=== PATIENT | female | born 1985 | race American Indian/Alaskan Native ===

== ENCOUNTER 2016-09-05 15:27 | Emergency (ER) | payer MEDICAID ==
[2016-09-05 15:45] VITALS: BP 122/77
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
== END 2016-09-05 16:25 | disposition home or self-care (01) ==
LOC: FB.ED 15:27
DX: S63.502A Unspecified sprain of left wrist, initial encounter (principal); S56.912A Strain of unspecified muscles, fascia and tendons at forearm level, left arm, initial encounter; E78.00 Pure hypercholesterolemia, unspecified; E11.40 Type 2 diabetes mellitus with diabetic neuropathy, unspecified; F32.9 Major depressive disorder, single episode, unspecified; Z88.5 Allergy status to narcotic agent; Z88.6 Allergy status to analgesic agent; Z79.4 Long term (current) use of insulin; Z90.49 Acquired absence of other specified parts of digestive tract; Z98.890 Other specified postprocedural states; Y04.0XXA Assault by unarmed brawl or fight, initial encounter
CPT/HCPCS: 73080-LT; 73110-LT; 99283

== ENCOUNTER 2017-03-18 15:23 | Emergency (ER) | payer MEDICAID ==
[2017-03-18] MEDS ORDERED: Sodium Chloride 0.9% 10 ML Syringe FLUSH PRN (18:54)
[2017-03-18] MEDS ORDERED: Barium Sulfate 60% w/v Susp 355 ML Bottle PO ONE (19:11)
[2017-03-18] MEDS ORDERED: Iopamidol 755 Mg/ML 100 ML Bottle IV ONE (19:11)
[2017-03-18] MEDS ORDERED: Azithromycin 500 MG Tab PO ONE (21:05)
[2017-03-18] MEDS ORDERED: cefTRIAXone 250 MG Vial IM ONE (21:09)
[2017-03-18] MEDS ORDERED: Ondansetron 4 MG Tab.DIS PO SCH (21:15)
[2017-03-18 21:26] VITALS: BP 100/60
[2017-03-19] MEDS ORDERED: valACYclovir 1,000 MG Tab PO SCH (09:00)
--- NOTE | 2017-03-19 10:50 | CR ---
INDICATION: Shortness of breath. CHEST: PA and lateral views of the chest 03/18/2017 were compared with 2015 and 11/30/2010. There is evidence of exogenous obesity. The costophrenic angles are not fully included on the study, making it difficult to entirely exclude tiny pleural effusions. However, no definite active infiltrate or effusion was identified, with markings appearing very similar, if not identical to the previous examinations. Heart, mediastinum, and bony thorax were unremarkable. IMPRESSION: No acute process. MTDD
--- NOTE | 2017-03-20 14:04 | ER ---
DATE SEEN: 03/18/2017 TIME SEEN: She was seen at 1830 hours. HISTORY OF PRESENT ILLNESS: This is a pleasant descent woman who comes in with a history of abdominal discomfort. Last menstrual period was 02/19/2017, 5, para 4-0-1-4, status post previous tubal on January 24. Noted on 03/08/2017, had intercourse, and "the condom broke". She has noted burning when she passes urine the last two days and increasing despair. She has right greater than left rib discomfort and has difficulty with inspiration effort. She has slight fever and chills. She is type 2 diabetic, takes 60 of Lantus at bedtime and sliding scale 10-12 units 3 times a day. She has mild right upper quadrant pain. Right 9th, 10th, 11th, and 12th ribs are tender. PAST MEDICAL HISTORY: Migraines, anxiety, diabetes. ALLERGIES: Codeine, tramadol, and Toradol. CURRENT MEDICATIONS: Insulin Lantus plus NovoLog, gabapentin, Klonopin for anxiety. REVIEW OF SYSTEMS: Negative except as noted in HPI. PHYSICAL EXAMINATION: VITAL SIGNS: Blood pressure 106/71, heart rate 105, respirations 18, oxygen saturation normal 100%, temperature 36.7 degrees centigrade. Heart rate did come down to 97, blood pressure stayed pretty much the same 100/60, BMI is 28.9 kg/m2. GENERAL: This woman is in tears. She has mild distress. She talks about her chest pain on the right side. She denies any cough. Denies hemoptysis. Denies irregularity of heartbeat or palpitations or diaphoresis. HEENT: PERRLA intact. Pharynx without abnormality. No ulcers noted. Mucosa normal. NECK: No cervical adenopathy, thyromegaly, or masses in the neck or bruits. LUNGS: Clear without rales, rhonchi, or wheezes. CHEST: Right chest is tender, 9th, 10th, 11th, and 12th ribs. Mid axillary line to the midclavicular line. No crepitus. No step-off. No ecchymosis. There is mild bilateral sternochondral discomfort. HEART: S1, S2. No murmur. ABDOMEN: Soft with moderate discomfort in right upper quadrant. Moderate guarding. No rebound. No heel tap rebound. No rigidity. Bowel sounds increased. No CVA percussion tenderness. EXTREMITIES: Lower extremities without abnormality. CT of the abdomen was negative for any abnormalities of her ribs for fracture. No infiltrate in the lungs. Pelvic exam demonstrated herpetic lesions, extensive in the labia majora, inner surface, mucosal surface. Elevated white ulcers noted. Herpes labialis. 1. Treat with valacyclovir 1 g t.i.d. for 10 days. 2. Hydrocodone for pain. 3. Rocephin 250 mg and IM plus azithromycin 1000 mg prophylactic for GC chlamydia. 4. Urine specimen pending. OTHER LABORATORY FINDINGS: White count 5700, PMNs 60, lymphocytes 31, hemoglobin 15.1, MCH is low at 27.6, MCV is low normal at 83.6, normal is 80-96. Very close to microcytic hypochromia. MCHC is 33 (32-35.4 is normal range). Sodium 136, potassium 3.7, chloride 99, bicarb is 18, and BUN normal at 10 and creatinine 0.8. GFR is greater than 60. Glucose 390. Troponin less than 0.017. Urinalysis with 1000 glucose, ketones 150, squamous epithelial cells, moderate urine bacteria, moderate urine opiates. Drug screen is positive for opiates. The patient denies a history of drug use. She has a prescription for hydrocodone , and noted perhaps as etiology for patient's opiates in her urine. ASSESSMENT: 1. Herpes vaginalis. 2. Abdominal pain secondary to herpes vaginalis. 3. CAT scan revealed extensive constipation, probably secondary to decreased bowel activities from the abdominal pain associated with herpes. 4. Diabetic ketoacidosis with mild hyperglycemia. The patient is able to manage her diabetes relatively well. 5. History of migraines, none presently. 6. Mild obesity. 7. Rule out Juan Pablo-Abhishek hepatitis secondary to GC. GC chlamydia is pending. The patient is treated prophylactically for potential GC and chlamydia with Rocephin and Azithromycin. 8. Borderline, almost microcytic hyperchromic in the blood, but no evidence for anemia on the basis of hemoglobin of 15.5. RDW is 14, and is normal. 9. Ketonuria. She had her urine showing blood, doubt urinary tract infection. 10.Positive opiates in the urine toxicology screen, secondary to her chronic use of hydrocodone. PLAN: Patient is dismissed after receiving Rocephin 250 IM and azithromycin 1000 mg orally plus Zofran 4 mg oral dissolving tablet, and valacyclovir a gram b.i.d. for 10 days. Follow up with doctor in 7 to 14 days. /[id number] 1 1906 NERI/EVA
== END 2017-03-18 21:25 | disposition home or self-care (01) ==
LOC: FB.ED 15:23
DX: A60.04 Herpesviral vulvovaginitis (principal); E11.10 Type 2 diabetes mellitus with ketoacidosis without coma; Z79.4 Long term (current) use of insulin; F41.9 Anxiety disorder, unspecified; K59.00 Constipation, unspecified; E66.9 Obesity, unspecified; R82.5 Elevated urine levels of drugs, medicaments and biological substances; R31.9 Hematuria, unspecified; Z88.5 Allergy status to narcotic agent; Z88.6 Allergy status to analgesic agent
CPT/HCPCS: 36415; 71046; 74177; 80053; 80305; 81001; 83880; 84484; 85025; 87491; 87591; 96372; 99285; A9270; J0696; Q9967

== ENCOUNTER 2018-07-21 18:37 | Emergency (ER) | payer MEDICAID ==
[2018-07-21] MEDS ORDERED: Acetaminophen/HYDROcodone 325-10 MG Tab PO ONE (20:38)
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
[2018-07-21 23:03] VITALS: BP 115/75
== END 2018-07-21 22:07 | disposition home or self-care (01) ==
LOC: FB.ED 18:37
DX: S93.601A Unspecified sprain of right foot, initial encounter (principal); E78.00 Pure hypercholesterolemia, unspecified; E11.40 Type 2 diabetes mellitus with diabetic neuropathy, unspecified; F17.210 Nicotine dependence, cigarettes, uncomplicated; Z88.5 Allergy status to narcotic agent; Z88.8 Allergy status to other drugs, medicaments and biological substances; Z79.4 Long term (current) use of insulin; W50.0XXA Accidental hit or strike by another person, initial encounter
CPT/HCPCS: 73610; 73630; 99283; A9270

== ENCOUNTER 2018-08-17 10:19 | Inpatient (IN) | payer MEDICAID ==
--- NOTE | 2018-08-17 11:01 | EDM.PDOC ---
ED HPI GENERAL MEDICAL PROBLEM - General Chief Complaint: General Stated Complaint: ABD PAIN AND DIABETES Time Seen by Provider: 08/17/18 11:01 Source of Information: Reports: Patient History Limitations: Reports: No Limitations - History of Present Illness INITIAL COMMENTS - FREE TEXT/NARRATIVE: patient presents with concern for feeling unwell since about last Friday. She states that she has had some bad flank pain on the left side, diarrhea last night and over the past 3 months. She is tried increasing her fiber, but this hasn't seemed to help. She has had a few night sweats, and notes a weight loss of about 15 pounds. Addition she notes it hurts to eat, she has a headache, her vision seems a little bit blurry like her sugars are off. She states she is breathing okay, but does have some pain across her chest. Slightly increased urinary frequency. She has a history of "fallopian tube infection" approximately 2 months ago treated with antibiotics up in [place]. No new sexual partner, no vaginal discharge, pain, cramping, increased urination frequency or urgency. Past history of type 2 diabetic with severe insulin resistance. She takes Lantus 75 units nightly, and NovoLog 12-80 units with each meal. She hasn't had any since last night and did not take any NovoLog today. She has been taking her Lantus consistently and has not missed any doses. She is working with her primary on getting an insulin pump improved. Normal sugars are around 250-300. She took 1000 mg Tylenol just prior to coming to the ER today. Otherwise she has not noted anything that makes her symptoms better or worse. Recently returned from attending her brother's in [place], he was killed in a freak accident falling from a roof while working on gutters. She states she mostly feels numb, although it was very strange this weekend for no one from the family to be at the powwow that he usually dances at. The family was all gathered last week for a 4-day ceremony. No alcohol, tobacco, or other substance use. bilateral flank Pain Score (Numeric/FACES): 9 - Related Data Allergies Allergy/AdvReac Type Severity Reaction Status Date / Time codeine Allergy Nausea Verified 08/17/18 10:27 ketorolac tromethamine Allergy Nausea Verified 08/17/18 10:27 [From Toradol] tramadol Allergy Tachycardia Verified 08/17/18 10:27 Home Meds: Home Meds Insulin Aspart [NovoLOG] 28 - 34 units SQ TID 10/24/12 [History] Insulin Glargine,Hum.Rec.Anlog [Lantus Solostar] 80 unit SQ BEDTIME 10/24/12 [ History] Citalopram Hydrobromide [Celexa] 40 mg PO DAILY 12/06/17 [History] ClonazePAM [KlonoPIN] 1 mg PO BID PRN 12/06/17 [History] Insulin Aspart [NovoLOG] 5 unit SQ WITHMEALSANDBED PRN #1 pen 08/17/18 [Rx] Insulin Detemir [Levemir Flextouch] 75 unit SQ BEDTIME #1 ml 08/17/18 [Rx] Past Medical History HEENT History: Reports: Other (See Below) Other HEENT History: TOOTH EXTRACTION Cardiovascular History: Reports: High Cholesterol Respiratory History: Reports: Other (See Below) Other Respiratory History: pneumonia Gastrointestinal History: Reports: Cholelithiasis Genitourinary History: Reports: UTI, Recurrent [employer] History: Reports: None, , Other (See Below) : 5 (one son 2-3 yrs ago ) Other [employer] History: 3 c sections, infection in fallopian tube Musculoskeletal History: Reports: Back Pain, Chronic Other Musculoskeletal History: DDD and bulging disks Neurological History: Reports: Migraines, Neuropathy, Diabetic Psychiatric History: Reports: Anxiety, Depression, PTSD Endocrine/Metabolic History: Reports: Diabetes, Type II - Infectious Disease History Infectious Disease History: Reports: Chicken Pox - Past Surgical History GI Surgical History: Reports: Cholecystectomy Female Surgical History: Reports: Section Social & Family History - Family History HEENT: Reports: None Cardiac: Reports: High Cholesterol, Other (See Below) Other Cardiac Family History: heart disease Respiratory: Reports: None GI: Reports: None : Reports: None OBGYN: Reports: Musculoskeletal: Reports: None Neurological: Reports: None Psychiatric: Reports: None Endocrine/Metabolic: Reports: Diabetes, type II Hematologic: Reports: None Immunologic: Reports: None Dermatologic: Reports: None Oncologic: Reports: None - Tobacco Use Smoking Status *Q: Former Smoker Used Tobacco, but Quit: Yes Month/Year Tobacco Last Used: unknown - Caffeine Use Caffeine Use: Reports: Coffee - Alcohol Use Alcohol Use History: No - Recreational Drug Use Recreational Drug Use: No - Living Situation & Occupation Living situation: Reports: Single Social History Comment: 4 children ED ROS GENERAL - Review of Systems Review Of Systems: See Below Constitutional: Reports: Malaise, Weakness, Fatigue, Night Sweats, Decreased Appetite. Denies: Fever, Chills HEENT: Denies: No Symptoms Respiratory: Reports: Pleuritic Chest Pain Cardiovascular: Reports: Chest Pain. Denies: Dyspnea on Exertion, Lightheadedness, Palpitations Endocrine: Reports: Fatigue, High Glucose (normal for her 250-300, has been that ), Polydypsia, Polyuria GI/Abdominal: Reports: Abdominal Pain, Diarrhea, Decreased Appetite, Nausea, Stool Incontinence (overnight ), Vomiting. Denies: Black Stool, Bloody Stool, Constipation, Melena : Reports: Flank Pain, Frequency. Denies: Hematuria, Urgency Musculoskeletal: Reports: Back Pain, Muscle Pain Skin: Denies: Rash Neurological: Reports: Headache. Denies: Confusion, Numbness, Syncope, Tingling , Weakness, Change in Speech Psychiatric: Reports: No Symptoms, Other (reports "feels numb" since brother ) Hematologic/Lymphatic: Denies: Easy Bleeding, Easy Bruising Immunologic: Reports: No Symptoms ED EXAM, GENERAL - Physical Exam Exam: See Below Free Text/Narrative:: general: Alert, nontoxic but very tired appearing. pupils are equal and reactive , facial muscle symmetric. Tympanic membranes are clear bilaterally with normal light reflex, throat is without erythema, pedis members moist. There is no tonsillar enlargement or exudates. Neck is supple and she has no obvious lymphadenopathy. Lungs are clear throughout with no wheezes or crackles and good air movement in all sears. Heart is regular rate and rhythm 99 murmur. Abdomen positive bowel sounds, soft, diffusely tender but nondistended. No rebound, no guarding. negative Garcia's and McBurney's point. surgical scar present. Left-sided flank pain and costovertebral angle tenderness that extends clear down her side into her hip region. peripheral pulses are +2 in both the upper and lower extremities, there is no lower extremity edema or leg swelling. She has no obvious rashes, lesions or bruises. neuro: Gait is normal, equal strength bilaterally. Psych: Mood and affect are appropriate, she makes good eye contact and answers questions appropriately. Speech is normal rate and volume and she does not show any evidence of hallucinations or paranoia. pelvic exam shows normal external female genitalia, speculum visualizes cervix with brown vaginal discharge, cervical motion tenderness, and bilateral adnexal tenderness. EKG INTERPRETATION Rhythm: NSR [place]: Normal P-Wave: Present QRS: Normal ST-T: Normal QT: Normal Comparison: NA - No Prior EKG Course - Vital Signs Text/Narrative:: initial impression - recent travel, poorly controlled diabetes, mutiple possible focal symptoms - workup for cardiac (Chest pain duration 4 days), will check D-dimer also to r/o PE. Stable vitals. She is worried about DKA, although her sugar is in the normal range, and hasn't missed any insulin, this could be also marker of infection. infectious workup - start with CXR, urine, will get blood cultures. Abdomen also possible source. No s/s of meningeal irritation. No obvious skin lesions. Eventually also will get pelvic exam tae given possible recent PID. Start IVF; she took tylenol just prior to arrival, will hold on NSAIDs at this time. Discussed that I prefer not to use opioids initially until some workup is complete and cause identified, she is agreeable. Denies need for nausea medication at this time. Last Recorded V/S: Last Vital Signs Temp 36.7 C 08/17/18 23:12 Pulse 77 08/17/18 23:12 Resp 17 08/17/18 23:12 BP 122/72 08/17/18 23:12 Pulse Ox 99 08/17/18 23:12 - Orders/Labs/Meds Orders: Active Orders 24 hr Category Date Time Status Abdomen Pelvis w Cont [CT] Stat Exams 08/17/18 14:33 Taken CULTURE BLOOD [BC] Urgent Lab 08/17/18 12:17 Received CULTURE BLOOD [BC] Urgent Lab 08/17/18 12:22 Received LIPASE, SERUM Stat Lab 08/17/18 12:17 Received Morphine Med 08/17/18 19:07 Active 2 mg IVPUSH Q4H PRN Sodium Chloride 0.9% [Normal Saline] 1,000 ml Med 08/17/18 11:30 Active IV ASDIRECTED Sodium Chloride 0.9% [Saline Flush] Med 08/17/18 12:03 Active 10 ml FLUSH ASDIRECTED PRN cefOXitin [Mefoxin] Med 08/17/18 19:15 Active 2 gm IVPUSH Q6H Blood Culture x2 Reflex Set [OM.PC] Urgent Oth 08/17/18 11:35 Ordered Saline Lock Insert [OM.PC] Routine Oth 08/17/18 12:03 Ordered EKG 12 Lead [EK] Routine Ther 08/17/18 11:28 Stop Req Medication Orders Acetaminophen (Tylenol) 650 mg PO Q4H PRN PRN Reason: Pain (Mild 1-3)/fever Cefoxitin Sodium (Mefoxin) 2 gm IVPUSH Q6H [facility] Last Admin: 08/18/18 00:25 Dose: 2 gm Admin: 08/17/18 20:18 Dose: 2 gm Clonazepam (Klonopin) 1 mg PO BID PRN PRN Reason: Anxiety Last Admin: 08/17/18 23:36 Dose: 1 mg Sodium Chloride (Normal Saline) 1,000 mls @ 125 mls/hr IV ASDIRECTED [facility] Last Admin: 08/17/18 20:06 Dose: 125 mls/hr Infusion: 08/17/18 20:02 Dose: 125 mls/hr Admin: 08/17/18 12:02 Dose: 125 mls/hr Doxycycline Hyclate 100 mg/ (Sodium Chloride) 100 mls @ 100 mls/hr IV Q12H [facility] Last Admin: 08/17/18 20:51 Dose: 100 mls/hr Morphine Sulfate (Morphine) 2 mg IVPUSH Q4H PRN PRN Reason: Abdominal Pain Last Admin: 08/18/18 01:22 Dose: 2 mg Admin: 08/17/18 20:14 Dose: 2 mg Ondansetron HCl (Zofran Odt) 4 mg PO Q4H PRN PRN Reason: nausea, able to take PO Last Admin: 08/18/18 00:02 Dose: 4 mg Admin: 08/17/18 20:14 Dose: 4 mg Pregabalin (Lyrica) 100 mg PO TID [facility] Last Admin: 08/17/18 22:23 Dose: 100 mg Sodium Chloride (Saline Flush) 10 ml FLUSH ASDIRECTED PRN PRN Reason: Keep Vein Open Last Admin: 08/17/18 14:55 Dose: 10 ml Admin: 08/17/18 12:03 Dose: 10 ml Labs: Laboratory Tests 08/17/18 08/17/18 08/17/18 Range/Units 10:40 12:17 12:17 WBC (4.5-12.0) X10-3/uL RBC (3.23-5.20) x10(6)uL Hgb (11.5-15.5) g/dL Hct (30.0-51.3) % MCV (80-96) fL MCH (27.7-33.6) pg MCHC (32.2-35.4) g/dL RDW (11.5-15.5) % Plt Count (125-369) X10(3)uL MPV (7.4-10.4) fL Neut % (Auto) (46-82) % Lymph % (Auto) (13-37) % Emmet % (Auto) (4-12) % Eos % (Auto) (1.0-5.0) % Baso % (Auto) (0-2) % Neut # (Auto) (1.6-8.3) # Lymph # (Auto) (0.6-5.0) # Emmet # (Auto) (0.0-1.3) # Eos # (Auto) (0.0-0.8) # Baso # (Auto) (0.0-0.2) # ESR (0-20) mm/hr PT (8.7-11.1) INR (0.89-1.13) D-Dimer, Quantitative (0.0-0.59) mg/LFEU POC VBG pH (7.31-7.41) POC VBG pCO2 (41-51) mmHG POC VBG HCO3 (23-28) mmol/L POC VBG Total CO2 (24-29) mmol/L POC VBG Base Excess (-2-3) mmol/L Sodium (135-145) mmol/L Potassium (3.5-5.3) mmol/L Chloride (100-110) mmol/L Carbon Dioxide (21-32) mmol/L BUN (7-18) mg/dL Creatinine (0.55-1.02) mg/dL Est Cr Clr Drug Dosing mL/min Estimated GFR (MDRD) (>60) BUN/Creatinine Ratio (9-20) Glucose (80-116) mg/dL POC Glucose 252 H (80-116) mg/dL Calcium (8.6-10.2) mg/dL Total Bilirubin (0.1-1.3) mg/dL AST (5-25) IU/L ALT (12-36) U/L Alkaline Phosphatase (56-112) IU/L Troponin I (<0.017-0.056) ng/mL C-Reactive Protein (0.5-0.9) mg/dL Total Protein (6.0-8.0) g/dL Albumin (3.5-5.2) g/dL Globulin g/dL Albumin/Globulin Ratio Urine Color Yellow (YELLOW) Urine Appearance Clear (CLEAR) Urine pH 5.0 (5.0-6.5) Ur Specific [place] 1.020 (1.010-1.025) Urine Protein Negative (NEGATIVE) mg/dL Urine Glucose (UA) >1000 H (NORMAL) mg/dL Urine Ketones 15 H (NEGATIVE) mg/dL Urine Occult Blood Negative (NEGATIVE) Urine Nitrite Negative (NEGATIVE) Urine Bilirubin Negative (NEGATIVE) Urine Urobilinogen Normal (NEGATIVE) mg/dL Ur Leukocyte Esterase Negative (NEGATIVE) Urine RBC 0-5 (0-5) Urine WBC 0-5 (0-5) Ur Squamous Epith Cells Few H (NS,R,O) Urine Bacteria Occasional H (NS) Urine HCG, Qual Negative (NEGATIVE) 08/17/18 08/17/18 08/17/18 Range/Units 12:17 12:17 12:17 WBC 6.6 (4.5-12.0) X10-3/uL RBC 4.91 (3.23-5.20) x10(6)uL Hgb 14.2 (11.5-15.5) g/dL Hct 42.7 (30.0-51.3) % MCV 86.9 (80-96) fL MCH 29.0 (27.7-33.6) pg MCHC 33.3 (32.2-35.4) g/dL RDW 12.7 (11.5-15.5) % Plt Count 169 (125-369) X10(3)uL MPV 11.9 H (7.4-10.4) fL Neut % (Auto) 68.3 (46-82) % Lymph % (Auto) 25.0 (13-37) % Emmet % (Auto) 5.6 (4-12) % Eos % (Auto) 1 (1.0-5.0) % Baso % (Auto) 0 (0-2) % Neut # (Auto) 4.5 (1.6-8.3) # Lymph # (Auto) 1.6 (0.6-5.0) # Emmet # (Auto) 0.4 (0.0-1.3) # Eos # (Auto) 0.1 (0.0-0.8) # Baso # (Auto) 0.0 (0.0-0.2) # ESR (0-20) mm/hr PT 9.6 (8.7-11.1) INR 0.99 (0.89-1.13) D-Dimer, Quantitative (0.0-0.59) mg/LFEU POC VBG pH (7.31-7.41) POC VBG pCO2 (41-51) mmHG POC VBG HCO3 (23-28) mmol/L POC VBG Total CO2 (24-29) mmol/L POC VBG Base Excess (-2-3) mmol/L Sodium 138 (135-145) mmol/L Potassium 3.5 (3.5-5.3) mmol/L Chloride 101 (100-110) mmol/L Carbon Dioxide 27 (21-32) mmol/L BUN 15 (7-18) mg/dL Creatinine 0.4 L (0.55-1.02) mg/dL Est Cr Clr Drug Dosing 211.01 mL/min Estimated GFR (MDRD) > 60 (>60) BUN/Creatinine Ratio 37.5 H (9-20) Glucose 257 H (80-116) mg/dL POC Glucose (80-116) mg/dL Calcium 8.7 (8.6-10.2) mg/dL Total Bilirubin 0.7 (0.1-1.3) mg/dL AST 15 D (5-25) IU/L ALT 28 D (12-36) U/L Alkaline Phosphatase 112 (56-112) IU/L Troponin I (<0.017-0.056) ng/mL C-Reactive Protein (0.5-0.9) mg/dL Total Protein 7.3 (6.0-8.0) g/dL Albumin 3.5 (3.5-5.2) g/dL Globulin 3.8 g/dL Albumin/Globulin Ratio 0.9 Urine Color (YELLOW) Urine Appearance (CLEAR) Urine pH (5.0-6.5) Ur Specific [place] (1.010-1.025) Urine Protein (NEGATIVE) mg/dL Urine Glucose (UA) (NORMAL) mg/dL Urine Ketones (NEGATIVE) mg/dL Urine Occult Blood (NEGATIVE) Urine Nitrite (NEGATIVE) Urine Bilirubin (NEGATIVE) Urine Urobilinogen (NEGATIVE) mg/dL Ur Leukocyte Esterase (NEGATIVE) Urine RBC (0-5) Urine WBC (0-5) Ur Squamous Epith Cells (NS,R,O) Urine Bacteria (NS) Urine HCG, Qual (NEGATIVE) 08/17/18 08/17/18 08/17/18 Range/Units 12:17 12:17 12:17 WBC (4.5-12.0) X10-3/uL RBC (3.23-5.20) x10(6)uL Hgb (11.5-15.5) g/dL Hct (30.0-51.3) % MCV (80-96) fL MCH (27.7-33.6) pg MCHC (32.2-35.4) g/dL RDW (11.5-15.5) % Plt Count (125-369) X10(3)uL MPV (7.4-10.4) fL Neut % (Auto) (46-82) % Lymph % (Auto) (13-37) % Emmet % (Auto) (4-12) % Eos % (Auto) (1.0-5.0) % Baso % (Auto) (0-2) % Neut # (Auto) (1.6-8.3) # Lymph # (Auto) (0.6-5.0) # Emmet # (Auto) (0.0-1.3) # Eos # (Auto) (0.0-0.8) # Baso # (Auto) (0.0-0.2) # ESR 19 (0-20) mm/hr PT (8.7-11.1) INR (0.89-1.13) D-Dimer, Quantitative < 0.19 (0.0-0.59) mg/LFEU POC VBG pH (7.31-7.41) POC VBG pCO2 (41-51) mmHG POC VBG HCO3 (23-28) mmol/L POC VBG Total CO2 (24-29) mmol/L POC VBG Base Excess (-2-3) mmol/L Sodium (135-145) mmol/L Potassium (3.5-5.3) mmol/L Chloride (100-110) mmol/L Carbon Dioxide (21-32) mmol/L BUN (7-18) mg/dL Creatinine (0.55-1.02) mg/dL Est Cr Clr Drug Dosing mL/min Estimated GFR (MDRD) (>60) BUN/Creatinine Ratio (9-20) Glucose (80-116) mg/dL POC Glucose (80-116) mg/dL Calcium (8.6-10.2) mg/dL Total Bilirubin (0.1-1.3) mg/dL AST (5-25) IU/L ALT (12-36) U/L Alkaline Phosphatase (56-112) IU/L Troponin I < 0.017 L (<0.017-0.056) ng/mL C-Reactive Protein (0.5-0.9) mg/dL Total Protein (6.0-8.0) g/dL Albumin (3.5-5.2) g/dL Globulin g/dL Albumin/Globulin Ratio Urine Color (YELLOW) Urine Appearance (CLEAR) Urine pH (5.0-6.5) Ur Specific [place] (1.010-1.025) Urine Protein (NEGATIVE) mg/dL Urine Glucose (UA) (NORMAL) mg/dL Urine Ketones (NEGATIVE) mg/dL Urine Occult Blood (NEGATIVE) Urine Nitrite (NEGATIVE) Urine Bilirubin (NEGATIVE) Urine Urobilinogen (NEGATIVE) mg/dL Ur Leukocyte Esterase (NEGATIVE) Urine RBC (0-5) Urine WBC (0-5) Ur Squamous Epith Cells (NS,R,O) Urine Bacteria (NS) Urine HCG, Qual (NEGATIVE) 08/17/18 08/17/18 08/17/18 Range/Units 12:17 12:38 12:51 WBC (4.5-12.0) X10-3/uL RBC (3.23-5.20) x10(6)uL Hgb (11.5-15.5) g/dL Hct (30.0-51.3) % MCV (80-96) fL MCH (27.7-33.6) pg MCHC (32.2-35.4) g/dL RDW (11.5-15.5) % Plt Count (125-369) X10(3)uL MPV (7.4-10.4) fL Neut % (Auto) (46-82) % Lymph % (Auto) (13-37) % Emmet % (Auto) (4-12) % Eos % (Auto) (1.0-5.0) % Baso % (Auto) (0-2) % Neut # (Auto) (1.6-8.3) # Lymph # (Auto) (0.6-5.0) # Emmet # (Auto) (0.0-1.3) # Eos # (Auto) (0.0-0.8) # Baso # (Auto) (0.0-0.2) # ESR (0-20) mm/hr PT (8.7-11.1) INR (0.89-1.13) D-Dimer, Quantitative (0.0-0.59) mg/LFEU POC VBG pH 7.33 (7.31-7.41) POC VBG pCO2 48.2 (41-51) mmHG POC VBG HCO3 25.6 (23-28) mmol/L POC VBG Total CO2 27 (24-29) mmol/L POC VBG Base Excess 0 (-2-3) mmol/L Sodium (135-145) mmol/L Potassium (3.5-5.3) mmol/L Chloride (100-110) mmol/L Carbon Dioxide (21-32) mmol/L BUN (7-18) mg/dL Creatinine (0.55-1.02) mg/dL Est Cr Clr Drug Dosing mL/min Estimated GFR (MDRD) (>60) BUN/Creatinine Ratio (9-20) Glucose (80-116) mg/dL POC Glucose 241 H (80-116) mg/dL Calcium (8.6-10.2) mg/dL Total Bilirubin (0.1-1.3) mg/dL AST (5-25) IU/L ALT (12-36) U/L Alkaline Phosphatase (56-112) IU/L Troponin I (<0.017-0.056) ng/mL C-Reactive Protein 0.5 (0.5-0.9) mg/dL Total Protein (6.0-8.0) g/dL Albumin (3.5-5.2) g/dL Globulin g/dL Albumin/Globulin Ratio Urine Color (YELLOW) Urine Appearance (CLEAR) Urine pH (5.0-6.5) Ur Specific [place] (1.010-1.025) Urine Protein (NEGATIVE) mg/dL Urine Glucose (UA) (NORMAL) mg/dL Urine Ketones (NEGATIVE) mg/dL Urine Occult Blood (NEGATIVE) Urine Nitrite (NEGATIVE) Urine Bilirubin (NEGATIVE) Urine Urobilinogen (NEGATIVE) mg/dL Ur Leukocyte Esterase (NEGATIVE) Urine RBC (0-5) Urine WBC (0-5) Ur Squamous Epith Cells (NS,R,O) Urine Bacteria (NS) Urine HCG, Qual (NEGATIVE) Meds: Medications Generic Name Dose Route Start Last Admin Trade Name Freq PRN Reason Stop Dose Admin Acetaminophen 650 mg 08/17/18 19:12 Tylenol PO Q4H PRN Pain (Mild 1-3)/fever Cefoxitin Sodium 2 gm 08/17/18 19:15 08/18/18 00:25 Mefoxin IVPUSH 2 gm Q6H [facility] Administration Clonazepam 1 mg 08/17/18 23:00 08/17/18 23:36 Klonopin PO 1 mg BID PRN Administration Anxiety Sodium Chloride 1,000 mls @ 125 mls/hr 08/17/18 11:30 08/17/18 20:06 Normal Saline IV 125 mls/hr ASDIRECTED [facility] Administration Doxycycline Hyclate 100 mg/ 100 mls @ 100 mls/hr 08/17/18 20:38 08/17/18 20: 51 Sodium Chloride IV 100 mls/hr Q12H [facility] Administration Morphine Sulfate 2 mg 08/17/18 19:07 08/18/18 01:22 Morphine IVPUSH 2 mg Q4H PRN Administration Abdominal Pain Ondansetron HCl 4 mg 08/17/18 19:12 08/18/18 00:02 Zofran Odt PO 4 mg Q4H PRN Administration nausea, able to take PO Pregabalin 100 mg 08/17/18 21:00 08/17/18 22:23 Lyrica PO 100 mg TID [facility] Administration Sodium Chloride 10 ml 08/17/18 12:03 08/17/18 14:55 Saline Flush FLUSH 10 ml ASDIRECTED PRN Administration Keep Vein Open Discontinued Medications Generic Name Dose Route Start Last Admin Trade Name Adonisq PRN Reason Stop Dose Admin Doxycycline Hyclate 100 mg/ 100 mls @ 100 mls/hr 08/17/18 20:00 08/17/18 20: 51 Sodium Chloride IV Not Given Q12H [facility] Insulin Glargine 0 units 08/17/18 22:50 08/17/18 23:00 Lantus Solostar SUBCUT 08/17/18 23:59 60 units BEDTIME [facility] Administration Iopamidol 100 ml 08/17/18 14:49 08/17/18 15:08 Isovue-370 (76%) IV 08/17/18 14:50 100 ml . DIRECTED ONE Administration Morphine Sulfate 2 mg 08/17/18 14:34 08/17/18 14:50 Morphine IVPUSH 08/17/18 14:35 2 mg ONETIME ONE Administration Ondansetron HCl 4 mg 08/17/18 14:34 08/17/18 14:51 Zofran IVPUSH 08/17/18 14:35 4 mg ONETIME ONE Administration - Re-Assessments/Exams Free Text/Narrative Re-Assessment/Exam: 08/17/18 recheck - still feeling pain left side, chest, back, and tae lower abdomen. Labs still pending, but EKG and CXR do no show obvious abnormalities. Labs returned - normal WBC, CMP, Trop, D-dimer negative, normal VBG. Not in DKA , no obvious infectious markers. Discussed with results with patient. She reports history bowel [place], has had multiple abdominal surgeries including 5 c/s. Ongoing diarrhea which has been worsening. Discussed getting CT Abdomen/pelvis , to which she is agreeable. Free Text/Narrative Re-Assessment/Exam: CT abdomen/pelvis - no obvious transition point suggesting small bowel obstruction, but possible paralytic illeus suggested on one side with no apparent cause, vs possible early gastroenteritis. No other abnormalities. Patient agreeable to trying PO challenge. Repeat abdominal exam unchanged. Free Text/Narrative Re-Assessment/Exam: patient unable to take in more than small sips of water and has worsening pain when doing so. Pelvic exam completed and suggestive of PID. Will start IV antibiotics. Patient admitted to [facility], IV antibiotics ordered, other admission as follows: Diabetes type II, significant insulin resistance normal lantus 75 units nightly, decrease to 60units tonight given minimal oral intake today corrective novolog 5 units ordered for glucose greater than 250, I do not anticipate she will need this maintenance rate IVF for PID treatment, Cefoxitin 2gm q6hrs [facility]Z IV and Doxycyline 100mg q12 hrs MA[facility]NAZ IV Morphine 2mg IV PRN pain, encouraged to use sparingly zofran PRN Home lyrica ordered along with PRN dose clonazepam per her home meds and confirmed on [employer] repeat labs ordered for AM clear liquid diet for now given ?findings of early ileus. further management per hospitalist in AM Departure - Departure Time of Disposition: 19:08 Disposition: Admitted As Inpatient 67 Condition: Fair Clinical Impression: Pelvic inflammatory disease (PID), Diabetes type 2, uncontrolled, Nausea vomiting and diarrhea - Discharge Information - My Orders Last 24 Hours: My Active Orders 08/17/18 11:28 EKG 12 Lead [EK] Routine 08/17/18 11:30 Sodium Chloride 0.9% [Normal Saline] 1,000 ml IV ASDIRECTED 08/17/18 11:35 Blood Culture x2 Reflex Set [OM.PC] Urgent 08/17/18 12:03 Sodium Chloride 0.9% [Saline Flush] 10 ml FLUSH ASDIRECTED PRN Saline Lock Insert [OM.PC] Routine 08/17/18 12:17 CULTURE BLOOD [BC] Urgent LIPASE, SERUM Stat 08/17/18 12:22 CULTURE BLOOD [BC] Urgent 08/17/18 14:33 Abdomen Pelvis w Cont [CT] Stat 08/17/18 19:07 Morphine 2 mg IVPUSH Q4H PRN 08/17/18 19:15 cefOXitin [Mefoxin] 2 gm IVPUSH Q6H - Assessment/Plan Last 24 Hours: My Active Orders 08/17/18 11:28 EKG 12 Lead [EK] Routine 08/17/18 11:30 Sodium Chloride 0.9% [Normal Saline] 1,000 ml IV ASDIRECTED 08/17/18 11:35 Blood Culture x2 Reflex Set [OM.PC] Urgent 08/17/18 12:03 Sodium Chloride 0.9% [Saline Flush] 10 ml FLUSH ASDIRECTED PRN Saline Lock Insert [OM.PC] Routine 08/17/18 12:17 CULTURE BLOOD [BC] Urgent LIPASE, SERUM Stat 08/17/18 12:22 CULTURE BLOOD [BC] Urgent 08/17/18 14:33 Abdomen Pelvis w Cont [CT] Stat 08/17/18 19:07 Morphine 2 mg IVPUSH Q4H PRN 08/17/18 19:15 cefOXitin [Mefoxin] 2 gm IVPUSH Q6H
[2018-08-17] MEDS: Sodium Chloride 0.9% 1,000 ML IV SCH ×2 (12:02→20:06)
[2018-08-17] MEDS: Sodium Chloride 0.9% 10 ML Syringe FLUSH PRN ×2 (12:03→14:55)
[2018-08-17] MEDS ORDERED: Ondansetron 4 MG/2 ML SDV IVPUSH ONE (14:34)
[2018-08-17] MEDS ORDERED: Morphine 2 MG/ML Syringe IVPUSH ONE (14:34)
[2018-08-17] MEDS ORDERED: Iopamidol 755 Mg/ML 100 ML Bottle IV ONE (14:49)
--- NOTE | 2018-08-17 15:17 | CR ---
INDICATION: Chest pain. CHEST: Two PA views and a lateral view of the chest were obtained, 08/17/18, and compared with 12/06/17 and 03/18/17. The heart remains normal in size and shape. Overlying EKG leads are noted. Mediastinum is unremarkable, as is the bony thorax. Evidence of exogenous obesity is noted. An active infiltrate or effusion was not identified. IMPRESSION: No acute process. MTDD
[2018-08-17] MEDS ORDERED: Acetaminophen 325 MG Tab PO PRN (19:12)
[2018-08-17] MEDS ORDERED: Doxycycline 100 MG in Sodium Chloride 0.9% 100 ML IV SCH (20:00)
[2018-08-17] MEDS: Morphine 2 MG/ML Syringe IVPUSH PRN (20:14)
[2018-08-17] MEDS: Ondansetron 4 MG Tab.DIS PO PRN (20:14)
[2018-08-17] MEDS: cefOXitin 2 GM Vial IVPUSH SCH (20:18)
[2018-08-17] MEDS: Doxycycline 100 MG in Sodium Chloride 0.9% 100 ML IV SCH (20:51)
[2018-08-17] MEDS: Pregabalin 100 MG Cap PO SCH (22:23)
[2018-08-17] MEDS ORDERED: Insulin Glargine,Human Rec. Analog 100 Units/ML 3 ML Pen SUBCUT SCH (22:50)
[2018-08-17] MEDS: ClonazePAM 1 MG Tab PO PRN (23:36)
[2018-08-18] MEDS: Ondansetron 4 MG Tab.DIS PO PRN ×5 (00:02→20:49)
[2018-08-18] MEDS: cefOXitin 2 GM Vial IVPUSH SCH ×4 (00:25→19:12)
[2018-08-18] MEDS: Morphine 2 MG/ML Syringe IVPUSH PRN ×5 (01:22→20:52)
[2018-08-18] MEDS: Sodium Chloride 0.9% 1,000 ML IV SCH ×4 (05:26→19:17)
[2018-08-18] MEDS ORDERED: ClonazePAM 0.5 MG Tab PO PRN (08:47)
[2018-08-18] MEDS ORDERED: Pregabalin 100 MG Cap PO SCH (09:00)
--- NOTE | 2018-08-18 09:48 | PCM.HP ---
H&P History of Present Illness - General Date of Service: 08/18/18 Admit Problem/Dx: Admission Diagnosis/Problem Admission Diagnosis/Problem Infection within pelvic cavity Source of Information: Patient History Limitations: Reports: No Limitations - History of Present Illness Initial Comments - Free Text/Narative: This is a 33-year-old type 2 insulin-dependent diabetic that's had 4-5 day history of left flank pain, diarrhea, fevers and not able to eat. She denied nausea or vomiting, dysuria, pyuria, hematuria, vaginal discharge. 2 months ago she was diagnosed with an STD. She says she's been with the same partner for a year. ER doc notes that she had a lot of follow smelling purulent cervical discharge and admitted her with cephalosporin and doxycycline for PID. She denies diaphoresis, cough, shortness of breath. She low chest pain which she came in to the ER and evaluated and it came up negative bilateral flank Pain Score (Numeric/FACES): 9 - Related Data Allergies/Adverse Reactions: Allergies Allergy/AdvReac Type Severity Reaction Status Date / Time codeine Allergy Nausea Verified 08/17/18 10:27 ketorolac tromethamine Allergy Nausea Verified 08/17/18 10:27 [From Toradol] tramadol Allergy Tachycardia Verified 08/17/18 10:27 Home Medications: Home Meds ClonazePAM [KlonoPIN] 1 mg PO BID PRN 12/06/17 [History] Admelog 12 - 18 unit SUBCUT TIDMEALS 08/18/18 [History] DULoxetine [Cymbalta] 60 mg PO BEDTIME 08/18/18 [History] Hydrocodone/Acetaminophen [Hydrocodon-Acetaminophn 10-325] 1 tab PO TID PRN 10/29 [History] Insulin Glargine,Hum.Rec.Anlog [Basaglar Kwikpen U-100] 75 units SUBCUT BEDTIME 08/18/18 [History] Lisinopril 5 mg PO DAILY 08/18/18 [History] Pregabalin [Lyrica] 100 mg PO TID 08/18/18 [History] Past Medical History HEENT History: Reports: Other (See Below) Other HEENT History: TOOTH EXTRACTION Cardiovascular History: Reports: High Cholesterol Respiratory History: Reports: Other (See Below) Other Respiratory History: pneumonia Gastrointestinal History: Reports: Cholelithiasis Genitourinary History: Reports: UTI, Recurrent FLOTATION TENDER History: Reports: None, , Other (See Below) Other OB/BYN History: 3 c sections, infection in fallopian tube Musculoskeletal History: Reports: Back Pain, Chronic Other Musculoskeletal History: DDD and bulging disks Neurological History: Reports: Migraines, Neuropathy, Diabetic Psychiatric History: Reports: Anxiety, Depression, PTSD Endocrine/Metabolic History: Reports: Diabetes, Type II - Infectious Disease History Infectious Disease History: Reports: Chicken Pox - Past Surgical History GI Surgical History: Reports: Cholecystectomy Female Surgical History: Reports: Section Social & Family History - Family History Family Medical History: Noncontributory HEENT: Reports: None Cardiac: Reports: High Cholesterol, Other (See Below) Other Cardiac Family History: heart disease Respiratory: Reports: None GI: Reports: None : Reports: None OBGYN: Reports: Musculoskeletal: Reports: None Neurological: Reports: None Psychiatric: Reports: None Endocrine/Metabolic: Reports: Diabetes, type II Hematologic: Reports: None Immunologic: Reports: None Dermatologic: Reports: None Oncologic: Reports: None - Tobacco Use Smoking Status *Q: Former Smoker Years of Tobacco use: 5 Packs/Tins Daily: 0.2 Used Tobacco, but Quit: Yes Month/Year Tobacco Last Used: unknown Second Hand Smoke Exposure: No - Caffeine Use Caffeine Use: Reports: Coffee - Recreational Drug Use Recreational Drug Use: No - Living Situation & Occupation Living situation: Reports: Single H&P Review of Systems - Review of Systems: Review Of Systems: See Below General: Reports: Fever HEENT: Reports: No Symptoms Pulmonary: Reports: No Symptoms Cardiovascular: Reports: No Symptoms Gastrointestinal: Reports: Diarrhea, Decreased Appetite. Denies: Bloody Stool, Hematochezia, Melena, Nausea, Vomiting Genitourinary: Reports: Discharge Musculoskeletal: Reports: Back Pain Skin: Reports: No Symptoms Psychiatric: Reports: No Symptoms Neurological: Reports: No Symptoms Hematologic/Lymphatic: Reports: No Symptoms Immunologic: Reports: No Symptoms Exam - Exam Exam: See Below - Vital Signs Vital Signs: Last Vital Signs Temp 97.8 F 08/18/18 05:28 Pulse 73 08/18/18 05:28 Resp 17 08/18/18 05:28 BP 106/77 08/18/18 05:28 Pulse Ox 99 08/18/18 05:28 Weight: 190 lb 9 oz - Exam General: Alert, Oriented, Cooperative HEENT: Hearing Intact, Mucosa Moist & [place], Posterior Pharynx Clear, TMs Clear Neck: Supple, Trachea Midline Lungs: Clear to Auscultation, Normal Respiratory Effort. No: Crackles, Rales, Rhonchi, Rub Cardiovascular: Regular Rate, Regular Rhythm. No: Systolic Murmur, Diastolic Murmur GI/Abdominal Exam: Normal Bowel Sounds, Non-Tender, No Organomegaly, No Distention, No Abnormal Bruit, No Mass (Female) Exam: Other (Vaginal exam deferred. Was done by the ER physician and I talk to her about it and reviewed her note. She had cervical motion tenderness and discharge) Back Exam: Normal Inspection. No: CVA Tenderness (R), CVA Tenderness (L) Extremities: Normal Inspection, Non-Tender, No Pedal Edema Skin: Warm Neurological: Cranial Nerves Intact, Reflexes Equal Bilateral, Normal Speech, Normal Tone Neuro Extensive - Mental Status: Alert, Oriented x3, Normal Mood/Affect, Normal Cognition Neuro Extensive - Motor, Sensory, Reflexes: Normal Gait Psychiatric: Alert, Normal Affect, Normal Mood - Patient Data Lab Results Last 24 hrs: Laboratory Results - last 24 hr 08/17/18 08/17/18 08/17/18 Range/Units 10:40 12:17 12:17 WBC (4.5-12.0) X10-3/uL RBC (3.23-5.20) x10(6)uL Hgb (11.5-15.5) g/dL Hct (30.0-51.3) % MCV (80-96) fL MCH (27.7-33.6) pg MCHC (32.2-35.4) g/dL RDW (11.5-15.5) % Plt Count (125-369) X10(3)uL MPV (7.4-10.4) fL Neut % (Auto) (46-82) % Lymph % (Auto) (13-37) % Maries % (Auto) (4-12) % Eos % (Auto) (1.0-5.0) % Baso % (Auto) (0-2) % Neut # (Auto) (1.6-8.3) # Lymph # (Auto) (0.6-5.0) # Maries # (Auto) (0.0-1.3) # Eos # (Auto) (0.0-0.8) # Baso # (Auto) (0.0-0.2) # ESR (0-20) mm/hr PT (8.7-11.1) INR (0.89-1.13) D-Dimer, Quantitative (0.0-0.59) mg/LFEU POC VBG pH (7.31-7.41) POC VBG pCO2 (41-51) mmHG POC VBG HCO3 (23-28) mmol/L POC VBG Total CO2 (24-29) mmol/L POC VBG Base Excess (-2-3) mmol/L Sodium (135-145) mmol/L Potassium (3.5-5.3) mmol/L Chloride (100-110) mmol/L Carbon Dioxide (21-32) mmol/L BUN (7-18) mg/dL Creatinine (0.55-1.02) mg/dL Est Cr Clr Drug Dosing mL/min Estimated GFR (MDRD) (>60) BUN/Creatinine Ratio (9-20) Glucose (80-116) mg/dL POC Glucose 252 H (80-116) mg/dL Calcium (8.6-10.2) mg/dL Total Bilirubin (0.1-1.3) mg/dL AST (5-25) IU/L ALT (12-36) U/L Alkaline Phosphatase (56-112) IU/L Troponin I (<0.017-0.056) ng/mL C-Reactive Protein (0.5-0.9) mg/dL Total Protein (6.0-8.0) g/dL Albumin (3.5-5.2) g/dL Globulin g/dL Albumin/Globulin Ratio Lipase (14-72) U/L Urine Color Yellow (YELLOW) Urine Appearance Clear (CLEAR) Urine pH 5.0 (5.0-6.5) Ur Specific [place] 1.020 (1.010-1.025) Urine Protein Negative (NEGATIVE) mg/dL Urine Glucose (UA) >1000 H (NORMAL) mg/dL Urine Ketones 15 H (NEGATIVE) mg/dL Urine Occult Blood Negative (NEGATIVE) Urine Nitrite Negative (NEGATIVE) Urine Bilirubin Negative (NEGATIVE) Urine Urobilinogen Normal (NEGATIVE) mg/dL Ur Leukocyte Esterase Negative (NEGATIVE) Urine RBC 0-5 (0-5) Urine WBC 0-5 (0-5) Ur Squamous Epith Cells Few H (NS,R,O) Urine Bacteria Occasional H (NS) Urine HCG, Qual Negative (NEGATIVE) 08/17/18 08/17/18 08/17/18 Range/Units 12:17 12:17 12:17 WBC 6.6 (4.5-12.0) X10-3/uL RBC 4.91 (3.23-5.20) x10(6)uL Hgb 14.2 (11.5-15.5) g/dL Hct 42.7 (30.0-51.3) % MCV 86.9 (80-96) fL MCH 29.0 (27.7-33.6) pg MCHC 33.3 (32.2-35.4) g/dL RDW 12.7 (11.5-15.5) % Plt Count 169 (125-369) X10(3)uL MPV 11.9 H (7.4-10.4) fL Neut % (Auto) 68.3 (46-82) % Lymph % (Auto) 25.0 (13-37) % Maries % (Auto) 5.6 (4-12) % Eos % (Auto) 1 (1.0-5.0) % Baso % (Auto) 0 (0-2) % Neut # (Auto) 4.5 (1.6-8.3) # Lymph # (Auto) 1.6 (0.6-5.0) # Maries # (Auto) 0.4 (0.0-1.3) # Eos # (Auto) 0.1 (0.0-0.8) # Baso # (Auto) 0.0 (0.0-0.2) # ESR (0-20) mm/hr PT 9.6 (8.7-11.1) INR 0.99 (0.89-1.13) D-Dimer, Quantitative (0.0-0.59) mg/LFEU POC VBG pH (7.31-7.41) POC VBG pCO2 (41-51) mmHG POC VBG HCO3 (23-28) mmol/L POC VBG Total CO2 (24-29) mmol/L POC VBG Base Excess (-2-3) mmol/L Sodium 138 (135-145) mmol/L Potassium 3.5 (3.5-5.3) mmol/L Chloride 101 (100-110) mmol/L Carbon Dioxide 27 (21-32) mmol/L BUN 15 (7-18) mg/dL Creatinine 0.4 L (0.55-1.02) mg/dL Est Cr Clr Drug Dosing 211.01 mL/min Estimated GFR (MDRD) > 60 (>60) BUN/Creatinine Ratio 37.5 H (9-20) Glucose 257 H (80-116) mg/dL POC Glucose (80-116) mg/dL Calcium 8.7 (8.6-10.2) mg/dL Total Bilirubin 0.7 (0.1-1.3) mg/dL AST 15 D (5-25) IU/L ALT 28 D (12-36) U/L Alkaline Phosphatase 112 (56-112) IU/L Troponin I (<0.017-0.056) ng/mL C-Reactive Protein (0.5-0.9) mg/dL Total Protein 7.3 (6.0-8.0) g/dL Albumin 3.5 (3.5-5.2) g/dL Globulin 3.8 g/dL Albumin/Globulin Ratio 0.9 Lipase (14-72) U/L Urine Color (YELLOW) Urine Appearance (CLEAR) Urine pH (5.0-6.5) Ur Specific [place] (1.010-1.025) Urine Protein (NEGATIVE) mg/dL Urine Glucose (UA) (NORMAL) mg/dL Urine Ketones (NEGATIVE) mg/dL Urine Occult Blood (NEGATIVE) Urine Nitrite (NEGATIVE) Urine Bilirubin (NEGATIVE) Urine Urobilinogen (NEGATIVE) mg/dL Ur Leukocyte Esterase (NEGATIVE) Urine RBC (0-5) Urine WBC (0-5) Ur Squamous Epith Cells (NS,R,O) Urine Bacteria (NS) Urine HCG, Qual (NEGATIVE) 08/17/18 08/17/18 08/17/18 Range/Units 12:17 12:17 12:17 WBC (4.5-12.0) X10-3/uL RBC (3.23-5.20) x10(6)uL Hgb (11.5-15.5) g/dL Hct (30.0-51.3) % MCV (80-96) fL MCH (27.7-33.6) pg MCHC (32.2-35.4) g/dL RDW (11.5-15.5) % Plt Count (125-369) X10(3)uL MPV (7.4-10.4) fL Neut % (Auto) (46-82) % Lymph % (Auto) (13-37) % Maries % (Auto) (4-12) % Eos % (Auto) (1.0-5.0) % Baso % (Auto) (0-2) % Neut # (Auto) (1.6-8.3) # Lymph # (Auto) (0.6-5.0) # Maries # (Auto) (0.0-1.3) # Eos # (Auto) (0.0-0.8) # Baso # (Auto) (0.0-0.2) # ESR (0-20) mm/hr PT (8.7-11.1) INR (0.89-1.13) D-Dimer, Quantitative < 0.19 (0.0-0.59) mg/LFEU POC VBG pH (7.31-7.41) POC VBG pCO2 (41-51) mmHG POC VBG HCO3 (23-28) mmol/L POC VBG Total CO2 (24-29) mmol/L POC VBG Base Excess (-2-3) mmol/L Sodium (135-145) mmol/L Potassium (3.5-5.3) mmol/L Chloride (100-110) mmol/L Carbon Dioxide (21-32) mmol/L BUN (7-18) mg/dL Creatinine (0.55-1.02) mg/dL Est Cr Clr Drug Dosing mL/min Estimated GFR (MDRD) (>60) BUN/Creatinine Ratio (9-20) Glucose (80-116) mg/dL POC Glucose (80-116) mg/dL Calcium (8.6-10.2) mg/dL Total Bilirubin (0.1-1.3) mg/dL AST (5-25) IU/L ALT (12-36) U/L Alkaline Phosphatase (56-112) IU/L Troponin I < 0.017 L (<0.017-0.056) ng/mL C-Reactive Protein (0.5-0.9) mg/dL Total Protein (6.0-8.0) g/dL Albumin (3.5-5.2) g/dL Globulin g/dL Albumin/Globulin Ratio Lipase 17 (14-72) U/L Urine Color (YELLOW) Urine Appearance (CLEAR) Urine pH (5.0-6.5) Ur Specific [place] (1.010-1.025) Urine Protein (NEGATIVE) mg/dL Urine Glucose (UA) (NORMAL) mg/dL Urine Ketones (NEGATIVE) mg/dL Urine Occult Blood (NEGATIVE) Urine Nitrite (NEGATIVE) Urine Bilirubin (NEGATIVE) Urine Urobilinogen (NEGATIVE) mg/dL Ur Leukocyte Esterase (NEGATIVE) Urine RBC (0-5) Urine WBC (0-5) Ur Squamous Epith Cells (NS,R,O) Urine Bacteria (NS) Urine HCG, Qual (NEGATIVE) 08/17/18 08/17/18 08/17/18 Range/Units 12:17 12:17 12:38 WBC (4.5-12.0) X10-3/uL RBC (3.23-5.20) x10(6)uL Hgb (11.5-15.5) g/dL Hct (30.0-51.3) % MCV (80-96) fL MCH (27.7-33.6) pg MCHC (32.2-35.4) g/dL RDW (11.5-15.5) % Plt Count (125-369) X10(3)uL MPV (7.4-10.4) fL Neut % (Auto) (46-82) % Lymph % (Auto) (13-37) % Maries % (Auto) (4-12) % Eos % (Auto) (1.0-5.0) % Baso % (Auto) (0-2) % Neut # (Auto) (1.6-8.3) # Lymph # (Auto) (0.6-5.0) # Maries # (Auto) (0.0-1.3) # Eos # (Auto) (0.0-0.8) # Baso # (Auto) (0.0-0.2) # ESR 19 (0-20) mm/hr PT (8.7-11.1) INR (0.89-1.13) D-Dimer, Quantitative (0.0-0.59) mg/LFEU POC VBG pH 7.33 (7.31-7.41) POC VBG pCO2 48.2 (41-51) mmHG POC VBG HCO3 25.6 (23-28) mmol/L POC VBG Total CO2 27 (24-29) mmol/L POC VBG Base Excess 0 (-2-3) mmol/L Sodium (135-145) mmol/L Potassium (3.5-5.3) mmol/L Chloride (100-110) mmol/L Carbon Dioxide (21-32) mmol/L BUN (7-18) mg/dL Creatinine (0.55-1.02) mg/dL Est Cr Clr Drug Dosing mL/min Estimated GFR (MDRD) (>60) BUN/Creatinine Ratio (9-20) Glucose (80-116) mg/dL POC Glucose (80-116) mg/dL Calcium (8.6-10.2) mg/dL Total Bilirubin (0.1-1.3) mg/dL AST (5-25) IU/L ALT (12-36) U/L Alkaline Phosphatase (56-112) IU/L Troponin I (<0.017-0.056) ng/mL C-Reactive Protein 0.5 (0.5-0.9) mg/dL Total Protein (6.0-8.0) g/dL Albumin (3.5-5.2) g/dL Globulin g/dL Albumin/Globulin Ratio Lipase (14-72) U/L Urine Color (YELLOW) Urine Appearance (CLEAR) Urine pH (5.0-6.5) Ur Specific [place] (1.010-1.025) Urine Protein (NEGATIVE) mg/dL Urine Glucose (UA) (NORMAL) mg/dL Urine Ketones (NEGATIVE) mg/dL Urine Occult Blood (NEGATIVE) Urine Nitrite (NEGATIVE) Urine Bilirubin (NEGATIVE) Urine Urobilinogen (NEGATIVE) mg/dL Ur Leukocyte Esterase (NEGATIVE) Urine RBC (0-5) Urine WBC (0-5) Ur Squamous Epith Cells (NS,R,O) Urine Bacteria (NS) Urine HCG, Qual (NEGATIVE) 08/17/18 08/17/18 08/18/18 Range/Units 12:51 22:37 01:21 WBC (4.5-12.0) X10-3/uL RBC (3.23-5.20) x10(6)uL Hgb (11.5-15.5) g/dL Hct (30.0-51.3) % MCV (80-96) fL MCH (27.7-33.6) pg MCHC (32.2-35.4) g/dL RDW (11.5-15.5) % Plt Count (125-369) X10(3)uL MPV (7.4-10.4) fL Neut % (Auto) (46-82) % Lymph % (Auto) (13-37) % Maries % (Auto) (4-12) % Eos % (Auto) (1.0-5.0) % Baso % (Auto) (0-2) % Neut # (Auto) (1.6-8.3) # Lymph # (Auto) (0.6-5.0) # Maries # (Auto) (0.0-1.3) # Eos # (Auto) (0.0-0.8) # Baso # (Auto) (0.0-0.2) # ESR (0-20) mm/hr PT (8.7-11.1) INR (0.89-1.13) D-Dimer, Quantitative (0.0-0.59) mg/LFEU POC VBG pH (7.31-7.41) POC VBG pCO2 (41-51) mmHG POC VBG HCO3 (23-28) mmol/L POC VBG Total CO2 (24-29) mmol/L POC VBG Base Excess (-2-3) mmol/L Sodium (135-145) mmol/L Potassium (3.5-5.3) mmol/L Chloride (100-110) mmol/L Carbon Dioxide (21-32) mmol/L BUN (7-18) mg/dL Creatinine (0.55-1.02) mg/dL Est Cr Clr Drug Dosing mL/min Estimated GFR (MDRD) (>60) BUN/Creatinine Ratio (9-20) Glucose (80-116) mg/dL POC Glucose 241 H 186 H 173 H (80-116) mg/dL Calcium (8.6-10.2) mg/dL Total Bilirubin (0.1-1.3) mg/dL AST (5-25) IU/L ALT (12-36) U/L Alkaline Phosphatase (56-112) IU/L Troponin I (<0.017-0.056) ng/mL C-Reactive Protein (0.5-0.9) mg/dL Total Protein (6.0-8.0) g/dL Albumin (3.5-5.2) g/dL Globulin g/dL Albumin/Globulin Ratio Lipase (14-72) U/L Urine Color (YELLOW) Urine Appearance (CLEAR) Urine pH (5.0-6.5) Ur Specific [place] (1.010-1.025) Urine Protein (NEGATIVE) mg/dL Urine Glucose (UA) (NORMAL) mg/dL Urine Ketones (NEGATIVE) mg/dL Urine Occult Blood (NEGATIVE) Urine Nitrite (NEGATIVE) Urine Bilirubin (NEGATIVE) Urine Urobilinogen (NEGATIVE) mg/dL Ur Leukocyte Esterase (NEGATIVE) Urine RBC (0-5) Urine WBC (0-5) Ur Squamous Epith Cells (NS,R,O) Urine Bacteria (NS) Urine HCG, Qual (NEGATIVE) 08/18/18 08/18/18 Range/Units 06:15 06:15 WBC 8.1 (4.5-12.0) X10-3/uL RBC 4.31 (3.23-5.20) x10(6)uL Hgb 12.8 (11.5-15.5) g/dL Hct 37.6 (30.0-51.3) % MCV 87.3 (80-96) fL MCH 29.7 (27.7-33.6) pg MCHC 34.0 (32.2-35.4) g/dL RDW 12.2 (11.5-15.5) % Plt Count 167 (125-369) X10(3)uL MPV 11.1 H (7.4-10.4) fL Neut % (Auto) 58.9 (46-82) % Lymph % (Auto) 32.4 (13-37) % Maries % (Auto) 6.9 (4-12) % Eos % (Auto) 1 (1.0-5.0) % Baso % (Auto) 0 (0-2) % Neut # (Auto) 4.8 (1.6-8.3) # Lymph # (Auto) 2.6 (0.6-5.0) # Maries # (Auto) 0.6 (0.0-1.3) # Eos # (Auto) 0.1 (0.0-0.8) # Baso # (Auto) 0.0 (0.0-0.2) # ESR (0-20) mm/hr PT (8.7-11.1) INR (0.89-1.13) D-Dimer, Quantitative (0.0-0.59) mg/LFEU POC VBG pH (7.31-7.41) POC VBG pCO2 (41-51) mmHG POC VBG HCO3 (23-28) mmol/L POC VBG Total CO2 (24-29) mmol/L POC VBG Base Excess (-2-3) mmol/L Sodium 143 (135-145) mmol/L Potassium 2.9 L (3.5-5.3) mmol/L Chloride 107 D (100-110) mmol/L Carbon Dioxide 27 (21-32) mmol/L BUN 12 (7-18) mg/dL Creatinine 0.7 (0.55-1.02) mg/dL Est Cr Clr Drug Dosing 120.58 mL/min Estimated GFR (MDRD) > 60 (>60) BUN/Creatinine Ratio 17.1 (9-20) Glucose 154 H D (80-116) mg/dL POC Glucose (80-116) mg/dL Calcium 8.0 L (8.6-10.2) mg/dL Total Bilirubin (0.1-1.3) mg/dL AST (5-25) IU/L ALT (12-36) U/L Alkaline Phosphatase (56-112) IU/L Troponin I (<0.017-0.056) ng/mL C-Reactive Protein (0.5-0.9) mg/dL Total Protein (6.0-8.0) g/dL Albumin (3.5-5.2) g/dL Globulin g/dL Albumin/Globulin Ratio Lipase (14-72) U/L Urine Color (YELLOW) Urine Appearance (CLEAR) Urine pH (5.0-6.5) Ur Specific [place] (1.010-1.025) Urine Protein (NEGATIVE) mg/dL Urine Glucose (UA) (NORMAL) mg/dL Urine Ketones (NEGATIVE) mg/dL Urine Occult Blood (NEGATIVE) Urine Nitrite (NEGATIVE) Urine Bilirubin (NEGATIVE) Urine Urobilinogen (NEGATIVE) mg/dL Ur Leukocyte Esterase (NEGATIVE) Urine RBC (0-5) Urine WBC (0-5) Ur Squamous Epith Cells (NS,R,O) Urine Bacteria (NS) Urine HCG, Qual (NEGATIVE) Result Diagrams: 08/18/18 06:15 08/18/18 06:15 - Problem List (1) Dehydration SNOMED Code(s): 20471985 ICD Code: E86.0 - DEHYDRATION Status: Acute Current Visit: Yes (2) Gastroenteritis SNOMED Code(s): 51679151 ICD Code: K52.9 - NONINFECTIVE GASTROENTERITIS AND COLITIS, UNSPECIFIED Status: Acute Current Visit: Yes (3) Diabetes type 2, uncontrolled SNOMED Code(s): 454014047, 648595009 ICD Code: E11.65 - TYPE 2 DIABETES MELLITUS WITH HYPERGLYCEMIA Status: Acute Current Visit: Yes (4) Pelvic inflammatory disease (PID) SNOMED Code(s): 393205809 ICD Code: N73.9 - FEMALE PELVIC INFLAMMATORY DISEASE, UNSPECIFIED Status: Acute Current Visit: Yes Problem List Initiated/Reviewed/Updated: Yes Orders Last 24hrs: Active Orders 24 hr Category Date Time Status Admission Status [Patient Status] [ADT] Routine ADT 08/18/18 08:51 Active Accu Check [Blood Glucose Check, Bedside] [RC] Care 08/18/18 08:49 Active QIDACANDBED Blood Glucose Check, Bedside [RC] WITHMEALSANDBED Care 08/17/18 19:12 Active Oxygen Therapy [RC] PRN Care 08/17/18 19:12 Active Up ad Remedios [RC] ASDIRECTED Care 08/17/18 19:12 Active Up ad Remedios [RC] ASDIRECTED Care 08/18/18 08:53 Active VTE/DVT Education [RC] Per Unit Routine Care 08/17/18 19:12 Active Vital Signs [RC] Q4H Care 08/17/18 19:12 Active Abdomen Pelvis w Cont [CT] Stat Exams 08/17/18 14:33 Taken BASIC METABOLIC PANEL,BMP [CHEM] AM Lab 08/19/18 08:00 Ordered CHLAMYDIA/GC AMPLIFICATION Stat Lab 08/18/18 07:50 Ordered CULTURE BLOOD [BC] Urgent Lab 08/17/18 12:17 Received CULTURE BLOOD [BC] Urgent Lab 08/17/18 12:22 Received Acetaminophen [Tylenol] Med 08/17/18 19:12 Active 650 mg PO Q4H PRN Acetaminophen/HYDROcodone [[place] 325-10 MG] Med 08/18/18 08:47 Active 1 tab PO TID PRN ClonazePAM [KlonoPIN] Med 08/17/18 23:00 Active 1 mg PO BID PRN DULoxetine [Cymbalta] Med 08/18/18 21:00 Active 60 mg PO BEDTIME Doxycycline [Vibramycin] 100 mg Med 08/17/18 20:38 Active Sodium Chloride 0.9% [Normal Saline] 100 ml IV Q12H Enoxaparin [Lovenox] Med 08/18/18 09:00 Active 40 mg SUBCUT Q24H Insulin Glarg,Human.Rec.Analog [LantUS Solostar] Med 08/18/18 21:00 Active 35 units SUBCUT BEDTIME Insulin Lispro [HumaLOG] Med 08/18/18 09:00 Active See Protocol SUBCUT QIDACANDBED Lisinopril [Prinivil] Med 08/18/18 09:00 Active 5 mg PO DAILY Morphine Med 08/17/18 19:07 Active 2 mg IVPUSH Q4H PRN Ondansetron [Zofran ODT] Med 08/17/18 19:12 Active 4 mg PO Q4H PRN Potassium Chloride [Klor-Con M20] Med 08/18/18 09:00 Active 20 meq PO BID Pregabalin [Lyrica] Med 08/17/18 21:00 Active 100 mg PO TID Sodium Chloride 0.9% [Normal Saline] 1,000 ml Med 08/17/18 11:30 Active IV ASDIRECTED Sodium Chloride 0.9% [Saline Flush] Med 08/17/18 12:03 Active 10 ml FLUSH ASDIRECTED PRN cefOXitin [Mefoxin] Med 08/17/18 19:15 Active 2 gm IVPUSH Q6H Blood Culture x2 Reflex Set [OM.PC] Urgent Oth 08/17/18 11:35 Ordered Saline Lock Insert [OM.PC] Routine Oth 08/17/18 12:03 Ordered Resuscitation Status Routine Resus Stat 08/17/18 19:12 Ordered EKG 12 Lead [EK] Routine Ther 08/17/18 11:28 Stop Req Medication Orders Acetaminophen (Tylenol) 650 mg PO Q4H PRN PRN Reason: Pain (Mild 1-3)/fever Hydrocodone Bitart/Acetaminophen ([place] 325-10 Mg) 1 tab PO TID PRN PRN Reason: Pain Cefoxitin Sodium (Mefoxin) 2 gm IVPUSH Q6H [facility] Last Admin: 08/18/18 06:17 Dose: 2 gm Admin: 08/18/18 00:25 Dose: 2 gm Admin: 08/17/18 20:18 Dose: 2 gm Clonazepam (Klonopin) 1 mg PO BID PRN PRN Reason: Anxiety Last Admin: 08/17/18 23:36 Dose: 1 mg Duloxetine HCl (Cymbalta) 60 mg PO BEDTIME [facility] Enoxaparin Sodium (Lovenox) 40 mg SUBCUT Q24H [facility] Sodium Chloride (Normal Saline) 1,000 mls @ 250 mls/hr IV ASDIRECTED [facility] Last Admin: 08/18/18 05:26 Dose: 125 mls/hr Infusion: 08/18/18 04:06 Dose: 125 mls/hr Admin: 08/17/18 20:06 Dose: 125 mls/hr Infusion: 08/17/18 20:02 Dose: 125 mls/hr Admin: 08/17/18 12:02 Dose: 125 mls/hr Doxycycline Hyclate 100 mg/ (Sodium Chloride) 100 mls @ 100 mls/hr IV Q12H [facility] Last Admin: 08/17/18 20:51 Dose: 100 mls/hr Insulin Glargine (Lantus Solostar) 35 units SUBCUT BEDTIME [facility] Insulin Human Lispro (Humalog) 0 unit SUBCUT QIDACANDBED [facility]; Protocol Lisinopril (Prinivil) 5 mg PO DAILY [facility] Morphine Sulfate (Morphine) 2 mg IVPUSH Q4H PRN PRN Reason: Abdominal Pain Last Admin: 08/18/18 05:46 Dose: 2 mg Admin: 08/18/18 01:22 Dose: 2 mg Admin: 08/17/18 20:14 Dose: 2 mg Ondansetron HCl (Zofran Odt) 4 mg PO Q4H PRN PRN Reason: nausea, able to take PO Last Admin: 08/18/18 05:50 Dose: 4 mg Admin: 08/18/18 00:02 Dose: 4 mg Admin: 08/17/18 20:14 Dose: 4 mg Potassium Chloride (Klor-Con M20) 20 meq PO BID MAHNAZ Pregabalin (Lyrica) 100 mg PO TID MAHNAZ Last Admin: 08/17/18 22:23 Dose: 100 mg Sodium Chloride (Saline Flush) 10 ml FLUSH ASDIRECTED PRN PRN Reason: Keep Vein Open Last Admin: 08/17/18 14:55 Dose: 10 ml Admin: 08/17/18 12:03 Dose: 10 ml Assessment/Plan Comment:: 1. Admit for observation 2. I will give half of her Lantus and put on a sliding scale 4 times a day with long-acting insulins with 4 times a day Accu-Cheks. 3. VTE prophylaxis with Lovenox. 4. Clear liquids and advance diet as tolerated 5. IV fluids at 250 mL an hour until the patient becomes hydrated 6. Doxycycline by mouth and cefoxitin IV for PID 7. GC and chlamydia were not done so we'll get those for urine today. 8. Up ad remedios. 9. Potassium supplement due to low potassium and recheck BMP in a.m.
[2018-08-18] MEDS: Doxycycline 100 MG in Sodium Chloride 0.9% 100 ML IV SCH ×2 (09:55→20:16)
[2018-08-18] MEDS: Lisinopril 5 MG Tab PO SCH (10:01)
[2018-08-18] MEDS: Potassium Chloride 20 MEQ Tab.ER PO SCH ×2 (10:03→20:19)
[2018-08-18] MEDS: Enoxaparin 40 MG/0.4 ML Syringe SUBCUT SCH (10:03)
[2018-08-18] MEDS: Insulin Lispro 100 Unit/ML 3 ML KwikPen SUBCUT SCH ×4 (10:04→20:41)
[2018-08-18] MEDS: Pregabalin 100 MG Cap PO SCH ×3 (10:07→20:20)
--- NOTE | 2018-08-18 10:42 | CT ---
INDICATION: Bilateral abdominal pain, history of small bowel obstruction, and history of type [address] ABDOMEN AND PELVIS WITH IV CONTRAST: Spiral 3.75 mm axial sections were obtained through the abdomen and pelvis with 100 mL Isovue 370 at 2.5 mL/second , with sagittal and coronal reconstructions, 08/17/18, and compared with . Total exam DLP = 885.74 mGy-cm. The lower lung sears and pleural spaces visualized appeared normal. The heart appeared normal in size. No pericardial effusion was seen. An area of low density is noted in the right lobe of the liver, unchanged from the previous examination, likely of benign origin. This is best seen on axial images #28 through #32, compared with #82 through #92 on the previous study. Clips compatible with cholecystectomy are again noted. The common bile duct was not dilated, especially allowing for post cholecystectomy change. The adrenal glands and kidneys appear to be normal without evidence of obstructive uropathy, gross calculi, pyelonephritis, or mass lesions. The spleen and the pancreas appear to be normal. No retroperitoneal masses were identified. Septated uterus didelphys, as previously, better visualized with IV contrast. Mildly distended loop of what appears to be distal jejunum is noted in the right flank with air fluid level. This could be on the basis of a process such as gastroenteritis but should be correlated clinically. No definite mechanically obstructive process was seen. More distal small bowel was normal in caliber. The appendix appeared normal in caliber, appearing to be visualized on coronal images #39 through #45 and sagittal images #41 through #47, as well as axial images #99 through #104. The sigmoid colon is mildly redundant. No evidence of free air or a definite mechanical obstruction was identified. No additional organomegaly, mass lesions, or free fluid collections were identified in the abdomen or pelvis. A probable follicular cyst is noted at the right ovary. The left ovary is unremarkable. Mild hypertrophic degenerative changes and probable mild disk disease are suggested at L4-5 with hypertrophic spurring and narrowing of the disk space at that level. IMPRESSION: 1. Loops of slightly prominent distal jejunum - proximal ileum. Findings may represent a localized paralytic ileus or possibly early gastroenteritis and should be correlated clinically. This appearance is new, compared with the previous study. 2. Stable irregular area of low density in the right lobe of the liver, most likely of benign origin. 3. Degenerative changes and disk disease at L4-5. 4. Probable follicular cyst at the right ovary. 5. Post cholecystectomy. No specific etiology is identified for the patients bilateral flank pain. Report was called to Dr. Erinn Durand at 1532 hours on 08/17/18. [facility]
[2018-08-18] MEDS: Acetaminophen/HYDROcodone 325-10 MG Tab PO PRN ×3 (11:29→22:17)
[2018-08-18] MEDS: ClonazePAM 1 MG Tab PO PRN (13:23)
[2018-08-18] MEDS: DULoxetine 60 MG Cap PO SCH (20:19)
[2018-08-18] MEDS: Insulin Glargine,Human Rec. Analog 100 Units/ML 3 ML Pen SUBCUT SCH (20:35)
[2018-08-19] MEDS: Sodium Chloride 0.9% 1,000 ML IV SCH ×3 (00:55→16:41)
[2018-08-19] MEDS: Morphine 2 MG/ML Syringe IVPUSH PRN ×6 (00:56→23:27)
[2018-08-19] MEDS: cefOXitin 2 GM Vial IVPUSH SCH ×4 (00:56→19:10)
[2018-08-19] MEDS: ClonazePAM 1 MG Tab PO PRN ×2 (01:44→13:46)
[2018-08-19] MEDS: Ondansetron 4 MG Tab.DIS PO PRN ×3 (01:45→15:33)
[2018-08-19] MEDS: Insulin Lispro 100 Unit/ML 3 ML KwikPen SUBCUT SCH ×4 (07:30→20:31)
[2018-08-19] MEDS: Acetaminophen/HYDROcodone 325-10 MG Tab PO PRN ×3 (07:47→21:12)
[2018-08-19] MEDS: Doxycycline 100 MG in Sodium Chloride 0.9% 100 ML IV SCH ×2 (08:29→20:28)
[2018-08-19] MEDS: Potassium Chloride 20 MEQ Tab.ER PO SCH ×2 (08:35→20:36)
[2018-08-19] MEDS: Enoxaparin 40 MG/0.4 ML Syringe SUBCUT SCH (08:35)
[2018-08-19] MEDS: Lisinopril 5 MG Tab PO SCH (08:41)
[2018-08-19] MEDS: Pregabalin 100 MG Cap PO SCH ×3 (08:41→20:36)
--- NOTE | 2018-08-19 08:50 | PCM.PN ---
- General Info Date of Service: 08/19/18 Admission Dx/Problem (Free Text): Patient states she had 7 diarrhea stools last night. No blood. She has nausea, fevers, chills. He states she's not urinating much. Abdominal pain is better and she denies any vaginal discharge. - Patient Data Vitals - Most Recent: Last Vital Signs Temp 98.4 F 08/19/18 07:31 Pulse 83 08/19/18 07:31 Resp 20 08/19/18 07:31 BP 125/71 08/19/18 08:41 Pulse Ox 100 08/19/18 07:31 Weight - Most Recent: 206 lb 3.2 oz I&O - Last 24 Hours: Intake & Output 08/18/18 08/19/18 08/19/18 22:59 06:59 14:59 Intake Total 1534 1233 Output Total 600 300 Balance 934 -300 1233 Lab Results Last 24 Hours: Laboratory Results - last 24 hr 08/18/18 08/18/18 08/18/18 Range/Units 05:55 11:34 17:05 Sodium (135-145) mmol/L Potassium (3.5-5.3) mmol/L Chloride (100-110) mmol/L Carbon Dioxide (21-32) mmol/L BUN (7-18) mg/dL Creatinine (0.55-1.02) mg/dL Est Cr Clr Drug Dosing mL/min Estimated GFR (MDRD) (>60) BUN/Creatinine Ratio (9-20) Glucose (80-116) mg/dL POC Glucose 168 H 191 H 117 H (80-116) mg/dL Calcium (8.6-10.2) mg/dL 08/18/18 08/19/18 08/19/18 Range/Units 20:31 06:40 07:25 Sodium 143 (135-145) mmol/L Potassium 3.0 L (3.5-5.3) mmol/L Chloride 109 (100-110) mmol/L Carbon Dioxide 24 (21-32) mmol/L BUN 8 (7-18) mg/dL Creatinine 0.4 L (0.55-1.02) mg/dL Est Cr Clr Drug Dosing 211.01 mL/min Estimated GFR (MDRD) > 60 (>60) BUN/Creatinine Ratio 20.0 (9-20) Glucose 86 (80-116) mg/dL POC Glucose 228 H D 82 D (80-116) mg/dL Calcium 7.8 L (8.6-10.2) mg/dL Jadon Results Last 24 Hours: Microbiology 08/17/18 12:17 Aerobic Blood Culture - Preliminary Blood - Venous NO GROWTH AFTER 1 DAY Anaerobic Blood Culture - Preliminary NO GROWTH AFTER 1 DAY 08/17/18 12:22 Aerobic Blood Culture - Preliminary Blood - Venous - Lab Draw NO GROWTH AFTER 1 DAY Anaerobic Blood Culture - Preliminary NO GROWTH AFTER 1 DAY Med Orders - Current: Current Medications Acetaminophen (Tylenol) 650 mg PO Q4H PRN PRN Reason: Pain (Mild 1-3)/fever Hydrocodone Bitart/Acetaminophen ([place] 325-10 Mg) 1 tab PO TID PRN PRN Reason: Pain Last Admin: 08/19/18 07:47 Dose: 1 tab Cefoxitin Sodium (Mefoxin) 2 gm IVPUSH Q6H [facility] Last Admin: 08/19/18 06:52 Dose: 2 gm Clonazepam (Klonopin) 1 mg PO BID PRN PRN Reason: Anxiety Last Admin: 08/19/18 01:44 Dose: 1 mg Duloxetine HCl (Cymbalta) 60 mg PO BEDTIME [facility] Last Admin: 08/18/18 20:19 Dose: 60 mg Enoxaparin Sodium (Lovenox) 40 mg SUBCUT Q24H [facility] Last Admin: 08/19/18 08:35 Dose: 40 mg Sodium Chloride (Normal Saline) 1,000 mls @ 150 mls/hr IV ASDIRECTED [facility] Last Admin: 08/19/18 08:17 Dose: 150 mls/hr Doxycycline Hyclate 100 mg/ (Sodium Chloride) 100 mls @ 100 mls/hr IV Q12H [facility] Last Admin: 08/19/18 08:29 Dose: 100 mls/hr Insulin Glargine (Lantus Solostar) 35 units SUBCUT BEDTIME [facility] Last Admin: 08/18/18 20:35 Dose: 35 units Insulin Human Lispro (Humalog) 0 unit SUBCUT QIDACANDBED [facility]; Protocol Last Admin: 08/19/18 07:30 Dose: Not Given Lisinopril (Prinivil) 5 mg PO DAILY [facility] Last Admin: 08/19/18 08:41 Dose: 5 mg Loperamide HCl (Imodium) 2 mg PO Q4H PRN PRN Reason: Diarrhea Morphine Sulfate (Morphine) 2 mg IVPUSH Q4H PRN PRN Reason: Abdominal Pain Last Admin: 08/19/18 06:51 Dose: 2 mg Ondansetron HCl (Zofran Odt) 4 mg PO Q4H PRN PRN Reason: nausea, able to take PO Last Admin: 08/19/18 01:45 Dose: 4 mg Potassium Chloride (Klor-Con M20) 40 meq PO BID [facility] Pregabalin (Lyrica) 100 mg PO TID [facility] Last Admin: 08/19/18 08:41 Dose: 100 mg Sodium Chloride (Saline Flush) 10 ml FLUSH ASDIRECTED PRN PRN Reason: Keep Vein Open Last Admin: 08/17/18 14:55 Dose: 10 ml Discontinued Medications Doxycycline Hyclate 100 mg/ (Sodium Chloride) 100 mls @ 100 mls/hr IV Q12H [facility] Last Admin: 08/17/18 20:51 Dose: Not Given Insulin Glargine (Lantus Solostar) 0 units SUBCUT BEDTIME [facility] Stop: 08/17/18 23:59 Last Admin: 08/17/18 23:00 Dose: 60 units Iopamidol (Isovue-370 (76%)) 100 ml IV . DIRECTED ONE Stop: 08/17/18 14:50 Last Admin: 08/17/18 15:08 Dose: 100 ml Morphine Sulfate (Morphine) 2 mg IVPUSH ONETIME ONE Stop: 08/17/18 14:35 Last Admin: 08/17/18 14:50 Dose: 2 mg Ondansetron HCl (Zofran) 4 mg IVPUSH ONETIME ONE Stop: 08/17/18 14:35 Last Admin: 08/17/18 14:51 Dose: 4 mg Potassium Chloride (Klor-Con M20) 20 meq PO BID [facility] Last Admin: 08/19/18 08:35 Dose: 20 meq - Exam General: Alert, Oriented, Cooperative Lungs: Clear to Auscultation, Normal Respiratory Effort Cardiovascular: Regular Rate, Regular Rhythm, No Murmurs GI/Abdominal Exam: Normal Bowel Sounds, Non-Tender, No Organomegaly, No Distention Extremities: No Pedal Edema - Problem List & Annotations (1) Dehydration SNOMED Code(s): 90995393 Code(s): E86.0 - DEHYDRATION Status: Acute Current Visit: Yes (2) Gastroenteritis SNOMED Code(s): 83647806 Code(s): K52.9 - NONINFECTIVE GASTROENTERITIS AND COLITIS, UNSPECIFIED Status: Acute Current Visit: Yes (3) Diabetes type 2, uncontrolled SNOMED Code(s): 041848756, 381897442 Code(s): E11.65 - TYPE 2 DIABETES MELLITUS WITH HYPERGLYCEMIA Status: Acute Current Visit: Yes (4) Pelvic inflammatory disease (PID) SNOMED Code(s): 657315930 Code(s): N73.9 - FEMALE PELVIC INFLAMMATORY DISEASE, UNSPECIFIED Status: Acute Current Visit: Yes - Problem List Review Problem List Initiated/Reviewed/Updated: Yes - My Orders Last 24 Hours: My Active Orders 08/18/18 07:50 CHLAMYDIA/GC AMPLIFICATION Stat 08/18/18 08:47 Acetaminophen/HYDROcodone [Belcher 325-10 MG] 1 tab PO TID PRN 08/18/18 08:49 Accu Check [Blood Glucose Check, Bedside] [RC] QIDACANDBED 08/18/18 08:51 Admission Status [Patient Status] [ADT] Routine 08/18/18 08:53 Up ad Remedios [RC] ASDIRECTED 08/18/18 09:00 Enoxaparin [Lovenox] 40 mg SUBCUT Q24H Insulin Lispro [HumaLOG] See Protocol SUBCUT QIDACANDBED Lisinopril [Prinivil] 5 mg PO DAILY 08/18/18 21:00 DULoxetine [Cymbalta] 60 mg PO BEDTIME Insulin Glarg,Human.Rec.Analog [LantUS Solostar] 35 units SUBCUT BEDTIME 08/19/18 08:46 Loperamide [Imodium] 2 mg PO Q4H PRN 08/19/18 08:47 Ambulate [RC] PER UNIT ROUTINE 08/19/18 09:00 Potassium Chloride [Klor-Con M20] 40 meq PO BID 08/19/18 Lunch Consistent Carbohydrate Diet [DIET] - Plan Plan:: 1. Ambulate frequently. 2. Advance to diabetic diet. 3. Continue IV fluids as prescribed 4. Lomotil when necessary. 5. Increased potassium to 40 milk once twice a day.
[2018-08-19] MEDS ORDERED: Potassium Chloride 20 MEQ Tab.ER PO ONE (09:00)
[2018-08-19] MEDS: Loperamide 2 MG Cap PO PRN ×3 (09:11→18:17)
--- NOTE | 2018-08-19 09:42 | PCM.SN ---
- Free Text/Narrative Note: Patient was initially admitted as an inpatient but I think more appropriately and observation because of his diarrhea and vomiting and should be very short hospital stay.
[2018-08-19] MEDS: Sodium Chloride 0.9% 10 ML Syringe FLUSH PRN ×3 (10:55→19:15)
--- NOTE | 2018-08-19 17:57 | PCM.SN ---
- Free Text/Narrative Note: States she's having bad abdominal pain in the left upper quadrant ever since she ate something today. She's had 3 more diarrhea stools and vomited after she ate. The patient needs to be changed impatient because the fact she's been here over 48 hours and she will not be going home as of yet. We'll go and check a CMP , amylase and a CBC because of the changes in her symptoms.
[2018-08-19] MEDS: Insulin Glargine,Human Rec. Analog 100 Units/ML 3 ML Pen SUBCUT SCH (20:33)
[2018-08-19] MEDS: DULoxetine 60 MG Cap PO SCH (20:36)
[2018-08-20] MEDS: cefOXitin 2 GM Vial IVPUSH SCH ×2 (00:37→06:16)
[2018-08-20] MEDS: Sodium Chloride 0.9% 1,000 ML IV SCH ×2 (00:39→07:38)
[2018-08-20] MEDS: Morphine 2 MG/ML Syringe IVPUSH PRN (04:08)
[2018-08-20 06:09] LABS: CHLAMYDIA TRACHOMATIS, NAA Negative (Negative); NEISSERIA GONORRHOEAE, NAA Negative (Negative)
[2018-08-20] MEDS: Potassium Chloride 20 MEQ Tab.ER PO SCH (08:13)
[2018-08-20] MEDS: Acetaminophen/HYDROcodone 325-10 MG Tab PO PRN (08:13)
[2018-08-20] MEDS: Lisinopril 5 MG Tab PO SCH (08:13)
[2018-08-20] MEDS: Ondansetron 4 MG Tab.DIS PO PRN (08:14)
[2018-08-20] MEDS: Enoxaparin 40 MG/0.4 ML Syringe SUBCUT SCH (08:24)
[2018-08-20] MEDS: Pregabalin 100 MG Cap PO SCH (08:24)
[2018-08-20] MEDS: Insulin Lispro 100 Unit/ML 3 ML KwikPen SUBCUT SCH (08:36)
[2018-08-20] MEDS: Doxycycline 100 MG in Sodium Chloride 0.9% 100 ML IV SCH (08:40)
--- NOTE | 2018-08-20 08:58 | PCM.PN ---
- General Info Date of Service: 08/20/18 Admission Dx/Problem (Free Text): Patient states she still has little nausea but her diarrhea has improved. Her dominant pain last night and we checked labs and amylase and liver functions are normal. She is urinating. - Patient Data Vitals - Most Recent: Last Vital Signs Temp 98.1 F 08/19/18 23:09 Pulse 70 08/19/18 23:09 Resp 18 08/19/18 23:09 BP 136/88 08/20/18 08:13 Pulse Ox 98 08/19/18 23:09 Weight - Most Recent: 206 lb 3.2 oz I&O - Last 24 Hours: Intake & Output 08/19/18 08/20/18 08/20/18 22:59 06:59 14:59 Intake Total 1268 1235 Output Total 200 Balance 1068 1235 Lab Results Last 24 Hours: Laboratory Results - last 24 hr 08/17/18 08/19/18 08/19/18 Range/Units 12:17 11:14 17:28 WBC (4.5-12.0) X10-3/uL RBC (3.23-5.20) x10(6)uL Hgb (11.5-15.5) g/dL Hct (30.0-51.3) % MCV (80-96) fL MCH (27.7-33.6) pg MCHC (32.2-35.4) g/dL RDW (11.5-15.5) % Plt Count (125-369) X10(3)uL MPV (7.4-10.4) fL Neut % (Auto) (46-82) % Lymph % (Auto) (13-37) % [place] % (Auto) (4-12) % Eos % (Auto) (1.0-5.0) % Baso % (Auto) (0-2) % Neut # (Auto) (1.6-8.3) # Lymph # (Auto) (0.6-5.0) # [place] # (Auto) (0.0-1.3) # Eos # (Auto) (0.0-0.8) # Baso # (Auto) (0.0-0.2) # Sodium (135-145) mmol/L Potassium (3.5-5.3) mmol/L Chloride (100-110) mmol/L Carbon Dioxide (21-32) mmol/L BUN (7-18) mg/dL Creatinine (0.55-1.02) mg/dL Est Cr Clr Drug Dosing mL/min Estimated GFR (MDRD) (>60) BUN/Creatinine Ratio (9-20) Glucose (80-116) mg/dL POC Glucose 113 179 H (80-116) mg/dL Calcium (8.6-10.2) mg/dL Total Bilirubin (0.1-1.3) mg/dL AST (5-25) IU/L ALT (12-36) U/L Alkaline Phosphatase (56-112) IU/L Total Protein (6.0-8.0) g/dL Albumin (3.5-5.2) g/dL Globulin g/dL Albumin/Globulin Ratio Amylase (25-115) U/L C. trachomatis (CAROL) Negative (Negative) N.gonorrhoeae DNA (CAROL) Negative (Negative) 08/19/18 08/19/18 08/20/18 Range/Units 18:06 18:06 00:30 WBC 5.9 (4.5-12.0) X10-3/uL RBC 4.01 (3.23-5.20) x10(6)uL Hgb 11.8 (11.5-15.5) g/dL Hct 35.1 (30.0-51.3) % MCV 87.7 (80-96) fL MCH 29.4 (27.7-33.6) pg MCHC 33.6 (32.2-35.4) g/dL RDW 12.5 (11.5-15.5) % Plt Count 153 (125-369) X10(3)uL MPV 10.7 H (7.4-10.4) fL Neut % (Auto) 51.4 (46-82) % Lymph % (Auto) 38.2 H (13-37) % [place] % (Auto) 8.4 (4-12) % Eos % (Auto) 2 (1.0-5.0) % Baso % (Auto) 0 (0-2) % Neut # (Auto) 3.0 (1.6-8.3) # Lymph # (Auto) 2.3 (0.6-5.0) # [place] # (Auto) 0.5 (0.0-1.3) # Eos # (Auto) 0.1 (0.0-0.8) # Baso # (Auto) 0.0 (0.0-0.2) # Sodium 143 (135-145) mmol/L Potassium 3.2 L (3.5-5.3) mmol/L Chloride 108 (100-110) mmol/L Carbon Dioxide 26 (21-32) mmol/L BUN 5 L (7-18) mg/dL Creatinine 0.4 L (0.55-1.02) mg/dL Est Cr Clr Drug Dosing 211.01 mL/min Estimated GFR (MDRD) > 60 (>60) BUN/Creatinine Ratio 12.5 (9-20) Glucose 137 H (80-116) mg/dL POC Glucose 61 L D (80-116) mg/dL Calcium 7.7 L (8.6-10.2) mg/dL Total Bilirubin 0.4 (0.1-1.3) mg/dL AST 18 D (5-25) IU/L ALT 25 D (12-36) U/L Alkaline Phosphatase 87 (56-112) IU/L Total Protein 5.9 L (6.0-8.0) g/dL Albumin 2.7 L (3.5-5.2) g/dL Globulin 3.2 g/dL Albumin/Globulin Ratio 0.8 Amylase 31 (25-115) U/L C. trachomatis (CAROL) (Negative) N.gonorrhoeae DNA (CAROL) (Negative) 08/20/18 Range/Units 01:33 WBC (4.5-12.0) X10-3/uL RBC (3.23-5.20) x10(6)uL Hgb (11.5-15.5) g/dL Hct (30.0-51.3) % MCV (80-96) fL MCH (27.7-33.6) pg MCHC (32.2-35.4) g/dL RDW (11.5-15.5) % Plt Count (125-369) X10(3)uL MPV (7.4-10.4) fL Neut % (Auto) (46-82) % Lymph % (Auto) (13-37) % [place] % (Auto) (4-12) % Eos % (Auto) (1.0-5.0) % Baso % (Auto) (0-2) % Neut # (Auto) (1.6-8.3) # Lymph # (Auto) (0.6-5.0) # [place] # (Auto) (0.0-1.3) # Eos # (Auto) (0.0-0.8) # Baso # (Auto) (0.0-0.2) # Sodium (135-145) mmol/L Potassium (3.5-5.3) mmol/L Chloride (100-110) mmol/L Carbon Dioxide (21-32) mmol/L BUN (7-18) mg/dL Creatinine (0.55-1.02) mg/dL Est Cr Clr Drug Dosing mL/min Estimated GFR (MDRD) (>60) BUN/Creatinine Ratio (9-20) Glucose (80-116) mg/dL POC Glucose 126 H (80-116) mg/dL Calcium (8.6-10.2) mg/dL Total Bilirubin (0.1-1.3) mg/dL AST (5-25) IU/L ALT (12-36) U/L Alkaline Phosphatase (56-112) IU/L Total Protein (6.0-8.0) g/dL Albumin (3.5-5.2) g/dL Globulin g/dL Albumin/Globulin Ratio Amylase (25-115) U/L C. trachomatis (CAROL) (Negative) N.gonorrhoeae DNA (CAROL) (Negative) Jadon Results Last 24 Hours: Microbiology 08/17/18 12:22 Aerobic Blood Culture - Preliminary Blood - Venous - Lab Draw NO GROWTH AFTER 2 DAYS Anaerobic Blood Culture - Preliminary NO GROWTH AFTER 2 DAYS 08/17/18 12:17 Aerobic Blood Culture - Preliminary Blood - Venous NO GROWTH AFTER 2 DAYS Anaerobic Blood Culture - Preliminary NO GROWTH AFTER 2 DAYS Med Orders - Current: Current Medications Acetaminophen (Tylenol) 650 mg PO Q4H PRN PRN Reason: Pain (Mild 1-3)/fever Hydrocodone Bitart/Acetaminophen ([place] 325-10 Mg) 1 tab PO TID PRN PRN Reason: Pain Last Admin: 08/20/18 08:13 Dose: 1 tab Cefoxitin Sodium (Mefoxin) 2 gm IVPUSH Q6H [facility] Last Admin: 08/20/18 06:16 Dose: 2 gm Clonazepam (Klonopin) 1 mg PO BID PRN PRN Reason: Anxiety Last Admin: 08/19/18 13:46 Dose: 1 mg Duloxetine HCl (Cymbalta) 60 mg PO BEDTIME [facility] Last Admin: 08/19/18 20:36 Dose: 60 mg Enoxaparin Sodium (Lovenox) 40 mg SUBCUT Q24H [facility] Last Admin: 08/20/18 08:24 Dose: Not Given Sodium Chloride (Normal Saline) 1,000 mls @ 150 mls/hr IV ASDIRECTED [facility] Last Admin: 08/20/18 07:38 Dose: 150 mls/hr Doxycycline Hyclate 100 mg/ (Sodium Chloride) 100 mls @ 100 mls/hr IV Q12H [facility] Last Admin: 08/20/18 08:40 Dose: 100 mls/hr Insulin Glargine (Lantus Solostar) 35 units SUBCUT BEDTIME [facility] Last Admin: 08/19/18 20:33 Dose: 35 units Insulin Human Lispro (Humalog) 0 unit SUBCUT QIDACANDBED [facility]; Protocol Last Admin: 08/20/18 08:36 Dose: Not Given Lisinopril (Prinivil) 5 mg PO DAILY [facility] Last Admin: 08/20/18 08:13 Dose: 5 mg Loperamide HCl (Imodium) 2 mg PO Q4H PRN PRN Reason: Diarrhea Last Admin: 08/19/18 18:17 Dose: 2 mg Morphine Sulfate (Morphine) 2 mg IVPUSH Q4H PRN PRN Reason: Abdominal Pain Last Admin: 08/20/18 04:08 Dose: 2 mg Ondansetron HCl (Zofran Odt) 4 mg PO Q4H PRN PRN Reason: nausea, able to take PO Last Admin: 08/20/18 08:14 Dose: 4 mg Potassium Chloride (Klor-Con M20) 40 meq PO BID [facility] Last Admin: 08/20/18 08:13 Dose: 40 meq Pregabalin (Lyrica) 100 mg PO TID [facility] Last Admin: 08/20/18 08:24 Dose: 100 mg Sodium Chloride (Saline Flush) 10 ml FLUSH ASDIRECTED PRN PRN Reason: Keep Vein Open Last Admin: 08/19/18 19:15 Dose: 10 ml Discontinued Medications Doxycycline Hyclate 100 mg/ (Sodium Chloride) 100 mls @ 100 mls/hr IV Q12H [facility] Last Admin: 08/17/18 20:51 Dose: Not Given Insulin Glargine (Lantus Solostar) 0 units SUBCUT BEDTIME [facility] Stop: 08/17/18 23:59 Last Admin: 08/17/18 23:00 Dose: 60 units Iopamidol (Isovue-370 (76%)) 100 ml IV . DIRECTED ONE Stop: 08/17/18 14:50 Last Admin: 08/17/18 15:08 Dose: 100 ml Morphine Sulfate (Morphine) 2 mg IVPUSH ONETIME ONE Stop: 08/17/18 14:35 Last Admin: 08/17/18 14:50 Dose: 2 mg Ondansetron HCl (Zofran) 4 mg IVPUSH ONETIME ONE Stop: 08/17/18 14:35 Last Admin: 08/17/18 14:51 Dose: 4 mg Potassium Chloride (Klor-Con M20) 20 meq PO BID [facility] Last Admin: 08/19/18 08:35 Dose: 20 meq Potassium Chloride (Klor-Con M20) 20 meq PO ONETIME ONE Stop: 08/19/18 09:01 Last Admin: 08/19/18 09:11 Dose: 20 meq - Exam General: Alert, Oriented, Cooperative Lungs: Normal Respiratory Effort GI/Abdominal Exam: Normal Bowel Sounds, Non-Tender, No Distention - Problem List & Annotations (1) Dehydration SNOMED Code(s): 65595010 Code(s): E86.0 - DEHYDRATION Status: Acute Current Visit: Yes (2) Gastroenteritis SNOMED Code(s): 88713078 Code(s): K52.9 - NONINFECTIVE GASTROENTERITIS AND COLITIS, UNSPECIFIED Status: Acute Current Visit: Yes (3) Diabetes type 2, uncontrolled SNOMED Code(s): 616619884, 157125599 Code(s): E11.65 - TYPE 2 DIABETES MELLITUS WITH HYPERGLYCEMIA Status: Acute Current Visit: Yes (4) Pelvic inflammatory disease (PID) SNOMED Code(s): 975298224 Code(s): N73.9 - FEMALE PELVIC INFLAMMATORY DISEASE, UNSPECIFIED Status: Acute Current Visit: Yes - Problem List Review Problem List Initiated/Reviewed/Updated: Yes - My Orders Last 24 Hours: My Active Orders 08/19/18 08:46 Loperamide [Imodium] 2 mg PO Q4H PRN 08/19/18 08:47 Ambulate [RC] PER UNIT ROUTINE 08/19/18 17:55 Admission Status [Patient Status] [ADT] Routine 08/19/18 21:00 Potassium Chloride [Klor-Con M20] 40 meq PO BID 08/19/18 Lunch Consistent Carbohydrate Diet [DIET] 08/20/18 08:56 Ready for Discharge [RC] PER UNIT ROUTINE - Plan Plan:: 1. Patient's been asking for lots of morphine. Her clinical exam is negative. She's probably getting some of the nausea from narcotics. Overall she looks better she's eating and drinking swelling, discharge her to home.
--- NOTE | 2018-08-20 09:01 | PCM.DCSUM1 ---
Discharge Summary - Hospital Course Free Text/Narrative:: Hospital course-patient was admitted and placed on Doxycycline oral and Mefoxin IV. She is pleasant MS IV for pain control and hydrocodone but she says she normally takes. Patient's diarrhea did improve we'll use Lomotil. CT scan showed possible paralytic ileus or gastroenteritis. I believe it's the latter. The ER doc did the vaginal exam she had and her motion tenderness and I follow discharge. GC and Chlamydia are pending. Patient requests a lot of morphine and had a lot of abdominal pain. Her exam was negative and rechecked amylase in all her functions which were negative. She said that her vaginal discharge improved. She still had diarrhea with no blood and some nausea. I believe after while the patient was requesting MS IV and I believe the nauseous from narcotics. Patient's blood sugar was controlled with half of her Lantus dose and sliding scale. We'll discharge her home on her home medications plus doxycycline, hydrocodone and Imodium. Brief History: This is a 33-year-old type 2 insulin-dependent diabetic that's had 4-5 day history of left flank pain, diarrhea, fevers and not able to eat. She denied nausea or vomiting, dysuria, pyuria, hematuria, vaginal discharge. 2 months ago she was diagnosed with an STD. She says she's been with the same partner for a year. ER doc notes that she had a lot of follow smelling purulent cervical discharge and admitted her with cephalosporin and doxycycline for PID. She denies diaphoresis, cough, shortness of breath. She low chest pain which she came in to the ER and evaluated and it came up negative Diagnosis: Stroke: No - Discharge Data Discharge Date: 08/20/18 Discharge Disposition: Home, Self-Care 01 Condition: Fair - Discharge Diagnosis/Problem(s) (1) Dehydration SNOMED Code(s): 86337001 ICD Code: E86.0 - DEHYDRATION Status: Acute Current Visit: Yes (2) Gastroenteritis SNOMED Code(s): 34740463 ICD Code: K52.9 - NONINFECTIVE GASTROENTERITIS AND COLITIS, UNSPECIFIED Status: Acute Current Visit: Yes (3) Diabetes type 2, uncontrolled SNOMED Code(s): 341599830, 162100954 ICD Code: E11.65 - TYPE 2 DIABETES MELLITUS WITH HYPERGLYCEMIA Status: Acute Current Visit: Yes (4) Pelvic inflammatory disease (PID) SNOMED Code(s): 061866032 ICD Code: N73.9 - FEMALE PELVIC INFLAMMATORY DISEASE, UNSPECIFIED Status: Acute Current Visit: Yes - Patient Instructions Diet: Diabetic Diet Activity: As Tolerated Driving: May Drive Today Showering/Bathing: May Shower Other/Special Instructions: 1. Recheck with Delia Lowe in 1 week. - Discharge Plan Prescriptions/Med Rec: Doxycycline [Vibramycin] 100 mg IV Q12H #12 vial Hydrocodone/Acetaminophen [Hydrocodon-Acetaminophn 10-325] 1 tab PO TID PRN #20 tablet PRN Reason: Pain Loperamide [Imodium] 2 mg PO Q4H PRN #30 cap PRN Reason: Diarrhea Ondansetron [Zofran ODT] 4 mg PO Q4H PRN #30 tab.dis PRN Reason: nausea, able to take PO Home Medications: Home Meds ClonazePAM [KlonoPIN] 1 mg PO BID PRN 12/06/17 [History] Admelog 12 - 18 unit SUBCUT TIDMEALS 08/18/18 [History] DULoxetine [Cymbalta] 60 mg PO BEDTIME 08/18/18 [History] Insulin Glargine,Hum.Rec.Anlog [Basaglar Kwikpen U-100] 75 units SUBCUT BEDTIME 08/18/18 [History] Lisinopril 5 mg PO DAILY 08/18/18 [History] Pregabalin [Lyrica] 100 mg PO TID 08/18/18 [History] Doxycycline [Vibramycin] 100 mg IV Q12H #12 vial 08/20/18 [Rx] Hydrocodone/Acetaminophen [Hydrocodon-Acetaminophn 10-325] 1 tab PO TID PRN #20 tablet 08/20/18 [Rx] Insulin Glarg,Human.Rec.Analog [Lantus Solostar] 35 units SUBCUT BEDTIME pen [Rx] Loperamide [Imodium] 2 mg PO Q4H PRN #30 cap 08/20/18 [Rx] Ondansetron [Zofran ODT] 4 mg PO Q4H PRN #30 tab.dis 08/20/18 [Rx] Patient Handouts: Type 2 Diabetes Mellitus, Diagnosis, Adult, Nausea and Vomiting, Adult, Venous Thromboembolism Prevention, Pelvic Inflammatory Disease , [id number] Forms: ED Department Discharge Referrals: Delia Lowe GTA [Primary Care Provider] - - Discharge Summary/Plan Comment DC Time >30 min.: No - Patient Data Vitals - Most Recent: Last Vital Signs Temp 98.1 F 08/19/18 23:09 Pulse 70 08/19/18 23:09 Resp 18 08/19/18 23:09 BP 136/88 08/20/18 08:13 Pulse Ox 98 08/19/18 23:09 Weight - Most Recent: 206 lb 3.2 oz I&O - Last 24 hours: Intake & Output 08/19/18 08/20/18 08/20/18 22:59 06:59 14:59 Intake Total 1268 1235 Output Total 200 Balance 1068 1235 Lab Results - Last 24 hrs: Laboratory Results - last 24 hr 08/17/18 08/19/18 08/19/18 Range/Units 12:17 11:14 17:28 WBC (4.5-12.0) X10-3/uL RBC (3.23-5.20) x10(6)uL Hgb (11.5-15.5) g/dL Hct (30.0-51.3) % MCV (80-96) fL MCH (27.7-33.6) pg MCHC (32.2-35.4) g/dL RDW (11.5-15.5) % Plt Count (125-369) X10(3)uL MPV (7.4-10.4) fL Neut % (Auto) (46-82) % Lymph % (Auto) (13-37) % [place] % (Auto) (4-12) % Eos % (Auto) (1.0-5.0) % Baso % (Auto) (0-2) % Neut # (Auto) (1.6-8.3) # Lymph # (Auto) (0.6-5.0) # [place] # (Auto) (0.0-1.3) # Eos # (Auto) (0.0-0.8) # Baso # (Auto) (0.0-0.2) # Sodium (135-145) mmol/L Potassium (3.5-5.3) mmol/L Chloride (100-110) mmol/L Carbon Dioxide (21-32) mmol/L BUN (7-18) mg/dL Creatinine (0.55-1.02) mg/dL Est Cr Clr Drug Dosing mL/min Estimated GFR (MDRD) (>60) BUN/Creatinine Ratio (9-20) Glucose (80-116) mg/dL POC Glucose 113 179 H (80-116) mg/dL Calcium (8.6-10.2) mg/dL Total Bilirubin (0.1-1.3) mg/dL AST (5-25) IU/L ALT (12-36) U/L Alkaline Phosphatase (56-112) IU/L Total Protein (6.0-8.0) g/dL Albumin (3.5-5.2) g/dL Globulin g/dL Albumin/Globulin Ratio Amylase (25-115) U/L C. trachomatis (CAROL) Negative (Negative) N.gonorrhoeae DNA (CAROL) Negative (Negative) 08/19/18 08/19/18 08/20/18 Range/Units 18:06 18:06 00:30 WBC 5.9 (4.5-12.0) X10-3/uL RBC 4.01 (3.23-5.20) x10(6)uL Hgb 11.8 (11.5-15.5) g/dL Hct 35.1 (30.0-51.3) % MCV 87.7 (80-96) fL MCH 29.4 (27.7-33.6) pg MCHC 33.6 (32.2-35.4) g/dL RDW 12.5 (11.5-15.5) % Plt Count 153 (125-369) X10(3)uL MPV 10.7 H (7.4-10.4) fL Neut % (Auto) 51.4 (46-82) % Lymph % (Auto) 38.2 H (13-37) % [place] % (Auto) 8.4 (4-12) % Eos % (Auto) 2 (1.0-5.0) % Baso % (Auto) 0 (0-2) % Neut # (Auto) 3.0 (1.6-8.3) # Lymph # (Auto) 2.3 (0.6-5.0) # [place] # (Auto) 0.5 (0.0-1.3) # Eos # (Auto) 0.1 (0.0-0.8) # Baso # (Auto) 0.0 (0.0-0.2) # Sodium 143 (135-145) mmol/L Potassium 3.2 L (3.5-5.3) mmol/L Chloride 108 (100-110) mmol/L Carbon Dioxide 26 (21-32) mmol/L BUN 5 L (7-18) mg/dL Creatinine 0.4 L (0.55-1.02) mg/dL Est Cr Clr Drug Dosing 211.01 mL/min Estimated GFR (MDRD) > 60 (>60) BUN/Creatinine Ratio 12.5 (9-20) Glucose 137 H (80-116) mg/dL POC Glucose 61 L D (80-116) mg/dL Calcium 7.7 L (8.6-10.2) mg/dL Total Bilirubin 0.4 (0.1-1.3) mg/dL AST 18 D (5-25) IU/L ALT 25 D (12-36) U/L Alkaline Phosphatase 87 (56-112) IU/L Total Protein 5.9 L (6.0-8.0) g/dL Albumin 2.7 L (3.5-5.2) g/dL Globulin 3.2 g/dL Albumin/Globulin Ratio 0.8 Amylase 31 (25-115) U/L C. trachomatis (CAROL) (Negative) N.gonorrhoeae DNA (CAROL) (Negative) 08/20/18 Range/Units 01:33 WBC (4.5-12.0) X10-3/uL RBC (3.23-5.20) x10(6)uL Hgb (11.5-15.5) g/dL Hct (30.0-51.3) % MCV (80-96) fL MCH (27.7-33.6) pg MCHC (32.2-35.4) g/dL RDW (11.5-15.5) % Plt Count (125-369) X10(3)uL MPV (7.4-10.4) fL Neut % (Auto) (46-82) % Lymph % (Auto) (13-37) % [place] % (Auto) (4-12) % Eos % (Auto) (1.0-5.0) % Baso % (Auto) (0-2) % Neut # (Auto) (1.6-8.3) # Lymph # (Auto) (0.6-5.0) # [place] # (Auto) (0.0-1.3) # Eos # (Auto) (0.0-0.8) # Baso # (Auto) (0.0-0.2) # Sodium (135-145) mmol/L Potassium (3.5-5.3) mmol/L Chloride (100-110) mmol/L Carbon Dioxide (21-32) mmol/L BUN (7-18) mg/dL Creatinine (0.55-1.02) mg/dL Est Cr Clr Drug Dosing mL/min Estimated GFR (MDRD) (>60) BUN/Creatinine Ratio (9-20) Glucose (80-116) mg/dL POC Glucose 126 H (80-116) mg/dL Calcium (8.6-10.2) mg/dL Total Bilirubin (0.1-1.3) mg/dL AST (5-25) IU/L ALT (12-36) U/L Alkaline Phosphatase (56-112) IU/L Total Protein (6.0-8.0) g/dL Albumin (3.5-5.2) g/dL Globulin g/dL Albumin/Globulin Ratio Amylase (25-115) U/L C. trachomatis (CAROL) (Negative) N.gonorrhoeae DNA (CAROL) (Negative) DARIAN Results - Last 24 hrs: Microbiology 08/17/18 12:22 Aerobic Blood Culture - Preliminary Blood - Venous - Lab Draw NO GROWTH AFTER 2 DAYS Anaerobic Blood Culture - Preliminary NO GROWTH AFTER 2 DAYS 08/17/18 12:17 Aerobic Blood Culture - Preliminary Blood - Venous NO GROWTH AFTER 2 DAYS Anaerobic Blood Culture - Preliminary NO GROWTH AFTER 2 DAYS Med Orders - Current: Current Medications Acetaminophen (Tylenol) 650 mg PO Q4H PRN PRN Reason: Pain (Mild 1-3)/fever Hydrocodone Bitart/Acetaminophen ([place] 325-10 Mg) 1 tab PO TID PRN PRN Reason: Pain Last Admin: 08/20/18 08:13 Dose: 1 tab Cefoxitin Sodium (Mefoxin) 2 gm IVPUSH Q6H [facility] Last Admin: 08/20/18 06:16 Dose: 2 gm Clonazepam (Klonopin) 1 mg PO BID PRN PRN Reason: Anxiety Last Admin: 08/19/18 13:46 Dose: 1 mg Duloxetine HCl (Cymbalta) 60 mg PO BEDTIME [facility] Last Admin: 08/19/18 20:36 Dose: 60 mg Enoxaparin Sodium (Lovenox) 40 mg SUBCUT Q24H [facility] Last Admin: 08/20/18 08:24 Dose: Not Given Sodium Chloride (Normal Saline) 1,000 mls @ 150 mls/hr IV ASDIRECTED [facility] Last Admin: 08/20/18 07:38 Dose: 150 mls/hr Doxycycline Hyclate 100 mg/ (Sodium Chloride) 100 mls @ 100 mls/hr IV Q12H [facility] Last Admin: 08/20/18 08:40 Dose: 100 mls/hr Insulin Glargine (Lantus Solostar) 35 units SUBCUT BEDTIME [facility] Last Admin: 08/19/18 20:33 Dose: 35 units Insulin Human Lispro (Humalog) 0 unit SUBCUT QIDACANDBED [facility]; Protocol Last Admin: 08/20/18 08:36 Dose: Not Given Lisinopril (Prinivil) 5 mg PO DAILY [facility] Last Admin: 08/20/18 08:13 Dose: 5 mg Loperamide HCl (Imodium) 2 mg PO Q4H PRN PRN Reason: Diarrhea Last Admin: 08/19/18 18:17 Dose: 2 mg Morphine Sulfate (Morphine) 2 mg IVPUSH Q4H PRN PRN Reason: Abdominal Pain Last Admin: 08/20/18 04:08 Dose: 2 mg Ondansetron HCl (Zofran Odt) 4 mg PO Q4H PRN PRN Reason: nausea, able to take PO Last Admin: 08/20/18 08:14 Dose: 4 mg Potassium Chloride (Klor-Con M20) 40 meq PO BID [facility] Last Admin: 08/20/18 08:13 Dose: 40 meq Pregabalin (Lyrica) 100 mg PO TID [facility] Last Admin: 08/20/18 08:24 Dose: 100 mg Sodium Chloride (Saline Flush) 10 ml FLUSH ASDIRECTED PRN PRN Reason: Keep Vein Open Last Admin: 08/19/18 19:15 Dose: 10 ml Discontinued Medications Doxycycline Hyclate 100 mg/ (Sodium Chloride) 100 mls @ 100 mls/hr IV Q12H [facility] Last Admin: 08/17/18 20:51 Dose: Not Given Insulin Glargine (Lantus Solostar) 0 units SUBCUT BEDTIME MAHNAZ Stop: 08/17/18 23:59 Last Admin: 08/17/18 23:00 Dose: 60 units Iopamidol (Isovue-370 (76%)) 100 ml IV . DIRECTED ONE Stop: 08/17/18 14:50 Last Admin: 08/17/18 15:08 Dose: 100 ml Morphine Sulfate (Morphine) 2 mg IVPUSH ONETIME ONE Stop: 08/17/18 14:35 Last Admin: 08/17/18 14:50 Dose: 2 mg Ondansetron HCl (Zofran) 4 mg IVPUSH ONETIME ONE Stop: 08/17/18 14:35 Last Admin: 08/17/18 14:51 Dose: 4 mg Potassium Chloride (Klor-Con M20) 20 meq PO BID [facility] Last Admin: 08/19/18 08:35 Dose: 20 meq Potassium Chloride (Klor-Con M20) 20 meq PO ONETIME ONE Stop: 08/19/18 09:01 Last Admin: 08/19/18 09:11 Dose: 20 meq
[2018-08-20 11:21] VITALS: BP 131/87; PULSE 77
== END 2018-08-20 11:12 | disposition home or self-care (01) | DRG 759 ==
LOC: FB.ED 10:19 → UNDOADMOB 19:09 → FB.MS 19:09 → INTOOBSV 19:09 → FB.MS 08-19 07:55 → OBSVTOIN 08-19 17:35 → INTOOBSV 08-19 17:35
PROVIDERS: ADMIT Family Medicine; ATTEND Family Medicine
DX: N73.9 Female pelvic inflammatory disease, unspecified (principal); E11.65 Type 2 diabetes mellitus with hyperglycemia; E78.00 Pure hypercholesterolemia, unspecified; M54.9 Dorsalgia, unspecified; G89.29 Other chronic pain; G43.909 Migraine, unspecified, not intractable, without status migrainosus; E11.40 Type 2 diabetes mellitus with diabetic neuropathy, unspecified; F41.9 Anxiety disorder, unspecified; F32.9 Major depressive disorder, single episode, unspecified; F43.10 Post-traumatic stress disorder, unspecified; K52.9 Noninfective gastroenteritis and colitis, unspecified; E86.0 Dehydration; R11.0 Nausea; T40.2X5A Adverse effect of other opioids, initial encounter; Z90.49 Acquired absence of other specified parts of digestive tract; Z98.891 History of uterine scar from previous surgery; Z79.4 Long term (current) use of insulin; Z87.891 Personal history of nicotine dependence; Z88.6 Allergy status to analgesic agent; Z88.8 Allergy status to other drugs, medicaments and biological substances; Z87.440 Personal history of urinary (tract) infections; Z79.899 Other long term (current) drug therapy
CPT/HCPCS: 36415; 71046; 74177; 80048; 80053; 81001; 81025; 82150; 82803; 82962; 83690; 84484; 85025; 85379; 85610; 85651; 86140; 87040; 87491; 87591; 93005; 96361; 96365; 96366; 96372; 96374; 96375; 96376; 99285-25; A9270-GY; G0378; J0694; J1650; J1815; J1815-GY; J2270; J2405; J3490; J7030; Q9967

== ENCOUNTER 2018-08-29 21:13 | Emergency (ER) | payer MEDICAID ==
[2018-08-29] MEDS ORDERED: Acetaminophen/oxyCODONE 325-5 MG Tab PO ONE ×2 (21:14→22:39)
[2018-08-29] MEDS ORDERED: Acetaminophen/HYDROcodone 325-5 MG Tab PO ONE (21:16)
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
[2018-08-30 00:52] VITALS: BP 128/94; PULSE 84
== END 2018-08-30 00:37 | disposition home or self-care (01) ==
LOC: FB.ED 21:13
DX: M54.5 Low back pain (principal); R10.2 Pelvic and perineal pain; M25.551 Pain in right hip; E78.00 Pure hypercholesterolemia, unspecified; F41.9 Anxiety disorder, unspecified; F32.9 Major depressive disorder, single episode, unspecified; E11.9 Type 2 diabetes mellitus without complications; Z88.5 Allergy status to narcotic agent; Z88.8 Allergy status to other drugs, medicaments and biological substances; Z79.4 Long term (current) use of insulin
CPT/HCPCS: 72100; 72131; 73502; 99284; A9270

== ENCOUNTER 2018-08-31 17:50 | Emergency (ER) | payer MEDICAID ==
[2018-08-31] MEDS ORDERED: Acetaminophen/oxyCODONE 325-5 MG Tab PO ONE (18:05)
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
[2018-08-31 19:30] VITALS: BP 118/55; PULSE 100
== END 2018-08-31 18:15 | disposition home or self-care (01) ==
LOC: FB.ED 17:50
DX: M54.5 Low back pain (principal); E78.00 Pure hypercholesterolemia, unspecified; F41.9 Anxiety disorder, unspecified; F32.9 Major depressive disorder, single episode, unspecified; E11.40 Type 2 diabetes mellitus with diabetic neuropathy, unspecified; Z88.5 Allergy status to narcotic agent; Z88.6 Allergy status to analgesic agent; Z79.899 Other long term (current) drug therapy; Z79.4 Long term (current) use of insulin
CPT/HCPCS: 99283; A9270

== ENCOUNTER 2018-09-20 21:36 | Emergency (ER) | payer MEDICAID ==
--- NOTE | 2018-09-20 21:55 | EDM.PDOC ---
ED HPI GENERAL MEDICAL PROBLEM - General Chief Complaint: General Stated Complaint: TOOTH ABCESS PAIN Time Seen by Provider: 09/20/18 21:54 Source of Information: Reports: Patient History Limitations: Reports: No Limitations - History of Present Illness INITIAL COMMENTS - FREE TEXT/NARRATIVE: 33-year-old female who had root canal performed on right upper first molar last and on Friday she reports that the tooth cracked and she has had increased pain in the tooth since that time. She is supposed to see her dentist on Friday of this coming week to have the root canal completed. She has been on clindamycin since last week. She reports the pain is now a 9/10 in her right upper jaw and radiating all over the right side of her face. She has not really been able to eat anything. She has been drinking okay. She is having no problems breathing and no fevers. She reports that she has been taking ibuprofen and Tylenol without relief of her pain. No vomiting. There are no other associated signs or symptoms. There are no other modifying factors. Onset: Other (As above) Duration: Getting Worse Location: Reports: Face (Right upper dental and jaw pain) Quality: Reports: Ache, Sharp, Throbbing Severity: Moderate (to severe) Improves with: Reports: None Worsens with: Reports: Eating, Other (Palpation. Air hitting the area.) Context: Reports: Other (As above) Associated Symptoms: Reports: No Other Symptoms Treatments BOWLING BALL MOLD ASSEMBLER: Reports: Acetaminophen, NSAIDS - Related Data Allergies Allergy/AdvReac Type Severity Reaction Status Date / Time codeine Allergy Nausea Verified 08/17/18 10:27 ketorolac tromethamine Allergy Nausea Verified 08/17/18 10:27 [From Toradol] tramadol Allergy Tachycardia Verified 08/17/18 10:27 Home Meds: Home Meds ClonazePAM [KlonoPIN] 1 mg PO BID PRN 12/06/17 [History] Admelog 12 - 18 unit SUBCUT TIDMEALS 08/18/18 [History] DULoxetine [Cymbalta] 60 mg PO BEDTIME 08/18/18 [History] Insulin Glargine,Hum.Rec.Anlog [Basaglar Kwikpen U-100] 75 units SUBCUT BEDTIME 08/18/18 [History] Lisinopril 5 mg PO DAILY 08/18/18 [History] Pregabalin [Lyrica] 100 mg PO TID 08/18/18 [History] Insulin Glarg,Human.Rec.Analog [Lantus Solostar] 35 units SUBCUT BEDTIME pen [Rx] Loperamide [Imodium] 2 mg PO Q4H PRN #30 cap 08/20/18 [Rx] Past Medical History Cardiovascular History: Reports: High Cholesterol Genitourinary History: Reports: UTI, Recurrent TESTING SPECIALIST History: Reports: Other (See Below) Other TESTING SPECIALIST History: 3 c sections, infection in fallopian tube Musculoskeletal History: Reports: Back Pain, Chronic (On chronic narcotic pain management with Bultrans patch) Other Musculoskeletal History: DDD and bulging disks Neurological History: Reports: Migraines, Neuropathy, Diabetic Psychiatric History: Reports: Anxiety, Depression, PTSD Endocrine/Metabolic History: Reports: Diabetes, Type II - Infectious Disease History Infectious Disease History: Reports: Chicken Pox - Past Surgical History HEENT Surgical History: Reports: Oral Surgery (Dougherty teeth extraction) GI Surgical History: Reports: Cholecystectomy Female Surgical History: Reports: Section (5) Social & Family History - Family History Family Medical History: Noncontributory HEENT: Reports: None Cardiac: Reports: High Cholesterol, Other (See Below) Other Cardiac Family History: heart disease Respiratory: Reports: None GI: Reports: None : Reports: None OBGYN: Reports: Musculoskeletal: Reports: None Neurological: Reports: None Psychiatric: Reports: None Endocrine/Metabolic: Reports: Diabetes, type II Hematologic: Reports: None Immunologic: Reports: None Dermatologic: Reports: None Oncologic: Reports: None - Tobacco Use Smoking Status *Q: Unknown Ever Smoked (Nonsmoker) - Caffeine Use Caffeine Use: Reports: Coffee - Alcohol Use Alcohol Use History: No - Living Situation & Occupation Living situation: Reports: Single ED ROS GENERAL - Review of Systems Review Of Systems: See Below Constitutional: Reports: No Symptoms HEENT: Reports: Dental Pain Respiratory: Reports: No Symptoms Cardiovascular: Reports: No Symptoms GI/Abdominal: Reports: No Symptoms : Reports: No Symptoms Musculoskeletal: Reports: No Symptoms Skin: Reports: No Symptoms Neurological: Reports: Headache ED EXAM, GENERAL - Physical Exam Exam: See Below Exam Limited By: No Limitations General Appearance: Alert, WD/WN, Mild Distress (Appears in some pain but nontoxic) Eye Exam: Bilateral Eye: EOMI, Normal Inspection, PERRL Ears: Normal External Exam, Hearing Grossly Normal Ear Exam: Bilateral Ear: Auricle Normal Nose: Normal Inspection, Normal Mucosa, No Blood Throat/Mouth: Normal Voice, No Airway Compromise, Inflammation (Around right upper molar. Dental caries. No pointing abscess.) Head: Atraumatic, Normocephalic Neck: Normal Inspection, Supple, Non-Tender, Full Range of Motion Respiratory/Chest: No Respiratory Distress, Lungs Clear, Normal Breath Sounds, No Accessory Muscle Use, Chest Non-Tender Cardiovascular: Normal Peripheral Pulses, Regular Rate, Rhythm, No JVD, No Murmur Peripheral Pulses: 2+: Radial (L), Radial (R) GI/Abdominal: Normal Bowel Sounds, Soft, Non-Tender, No Mass Back Exam: Normal Inspection Extremities: Normal Inspection, Normal Range of Motion, Non-Tender, No Pedal Edema, Normal Capillary Refill Neurological: Alert, Oriented, CN II-XII Intact, Normal Cognition, No Motor/ Sensory Deficits Skin Exam: Warm, Dry, Intact, Normal Color, No Rash Course - Orders/Labs/Meds Meds: Medications Discontinued Medications Generic Name Dose Route Start Last Admin Trade Name Freq PRN Reason Stop Dose Admin Ketorolac Tromethamine 60 mg 09/20/18 22:06 09/20/18 22:11 Toradol IM 09/20/18 22:07 60 mg ONETIME ONE Administration Ondansetron HCl 4 mg 09/20/18 22:06 09/20/18 22:11 Zofran Odt PO 09/20/18 22:07 4 mg ONETIME ONE Administration - Re-Assessments/Exams Free Text/Narrative Re-Assessment/Exam: 09/20/18 22:07: Patient with carious right upper molar with dental pain and presumed infection. The patient is on clindamycin for her dental infection. The patient is also on buprenophone patches for chronic pain. I have told the patient that I could not provide her with any narcotic-type medications for her pain. I did offer her Toradol 60 mg IM. She does have some nausea with this at times and I will give her Zofran with it as well. She is to follow-up with her dentist tomorrow or the next day. Departure - Departure Time of Disposition: 22:15 Disposition: Home, Self-Care 01 Condition: Good Clinical Impression: Dental caries, Pain, dental, Dental infection - Discharge Information *PRESCRIPTION DRUG MONITORING PROGRAM REVIEWED*: Yes *COPY OF PRESCRIPTION DRUG MONITORING REPORT IN PATIENT TED: Yes Instructions: Dental Abscess, [id number] Referrals: Delia Lowe MARINE EQUIPMENT ENGINEER [Primary Care Provider] - Forms: ED Department Discharge Additional Instructions: Continue your clindamycin as directed by your dentist. You may continue to take ibuprofen and Tylenol as needed for pain. Follow-up with your dentist tomorrow or the next day. Back to the emergency department for inability to swallow liquids, trouble breathing or any other concerning sign or symptom.
[2018-09-20] MEDS ORDERED: Ondansetron 4 MG Tab.DIS PO ONE (22:06)
[2018-09-20] MEDS ORDERED: Ketorolac 60 MG/2 ML SDV IM ONE (22:06)
[2018-09-20 22:40] VITALS: BP 137/84; PULSE 104
== END 2018-09-20 22:20 | disposition home or self-care (01) ==
LOC: FB.ED 21:36
DX: K04.7 Periapical abscess without sinus (principal); K02.9 Dental caries, unspecified; E11.9 Type 2 diabetes mellitus without complications; F41.9 Anxiety disorder, unspecified; F32.9 Major depressive disorder, single episode, unspecified; Z88.8 Allergy status to other drugs, medicaments and biological substances; Z88.1 Allergy status to other antibiotic agents; Z79.899 Other long term (current) drug therapy; Z79.4 Long term (current) use of insulin; Z90.49 Acquired absence of other specified parts of digestive tract
CPT/HCPCS: 96372; 99282; A9270; J1885

== ENCOUNTER 2018-11-13 14:33 | Emergency (ER) | payer MEDICAID ==
[2018-11-13] MEDS ORDERED: Aspirin 81 MG Tab.Chew PO ONE (15:00)
[2018-11-13] MEDS ORDERED: Sodium Chloride 0.9% 1,000 ML IV ONE (15:01)
[2018-11-13] MEDS ORDERED: LORazepam 2 MG/ML SDV IVPUSH ONE (15:03)
[2018-11-13] MEDS ORDERED: Morphine 10 MG/ML Syringe IVPUSH ONE (15:05)
[2018-11-13] MEDS ORDERED: Iopamidol 755 Mg/ML 100 ML Bottle IV ONE (15:16)
[2018-11-13] MEDS ORDERED: Morphine 10 MG/ML SDV ONE (15:45)
[2018-11-13] MEDS ORDERED: Morphine 10 MG/ML SDV IVPUSH ONE (15:50)
--- NOTE | 2018-11-13 16:12 | EDM.PDOC ---
ED HPI GENERAL MEDICAL PROBLEM - General Chief Complaint: Abdominal Pain Stated Complaint: ABD PAIN Time Seen by Provider: 11/13/18 14:40 Source of Information: Reports: Patient - History of Present Illness INITIAL COMMENTS - FREE TEXT/NARRATIVE: Patient is a 33 YO WF who presented to the ED because of abdominal pain which started 3 days ago. The pain is sharp,diffuse,10/10 with associoated nausea but no vomiting. There is no associated fever or chills. She had one loose stools yesterday and none since then. She also c/o chest pain, 3/10, denies having any dyspnea. She is anxious"up to the roof" she said because her fiance attempted suicide and was buried 2 weeks ago. abdomen Pain Score (Numeric/FACES): 9 - Related Data Allergies Allergy/AdvReac Type Severity Reaction Status Date / Time codeine Allergy Nausea Verified 11/13/18 14:44 ketorolac tromethamine Allergy Nausea Verified 11/13/18 14:44 [From Toradol] tramadol Allergy Tachycardia Verified 11/13/18 14:44 Home Meds: Home Meds ClonazePAM [KlonoPIN] 1 mg PO BID PRN 12/06/17 [History] Admelog 12 - 18 unit SUBCUT TIDMEALS 08/18/18 [History] DULoxetine [Cymbalta] 60 mg PO BEDTIME 08/18/18 [History] Insulin Glargine,Hum.Rec.Anlog [Basaglar Kwikpen U-100] 75 units SUBCUT BEDTIME 08/18/18 [History] Lisinopril 5 mg PO DAILY 08/18/18 [History] Pregabalin [Lyrica] 100 mg PO TID 08/18/18 [History] Insulin Glarg,Human.Rec.Analog [Lantus Solostar] 35 units SUBCUT BEDTIME pen [Rx] Loperamide [Imodium] 2 mg PO Q4H PRN #30 cap 08/20/18 [Rx] Past Medical History HEENT History: Reports: Other (See Below) Other HEENT History: toothache, dental pain, dental caries, dental infection. Cardiovascular History: Reports: High Cholesterol, Other (See Below) Other Cardiovascular History: hx of chestpain, palpitations Respiratory History: Reports: Other (See Below) Other Respiratory History: pneumonia Gastrointestinal History: Reports: Other (See Below) Other Gastrointestinal History: Gastroenteritis. Genitourinary History: Reports: UTI, Recurrent SHAKE BACKBOARD NOTCHER History: Reports: PID, Other (See Below) Other SHAKE BACKBOARD NOTCHER History: 3 c sections, infection in fallopian tube Musculoskeletal History: Reports: Back Pain, Chronic Other Musculoskeletal History: DDD and bulging disks Neurological History: Reports: Migraines, Neuropathy, Diabetic Psychiatric History: Reports: Anxiety, Depression, PTSD Endocrine/Metabolic History: Reports: Diabetes, Type II - Infectious Disease History Infectious Disease History: Reports: Chicken Pox - Past Surgical History HEENT Surgical History: Reports: Oral Surgery GI Surgical History: Reports: Cholecystectomy Female Surgical History: Reports: Section Social & Family History - Family History Family Medical History: Noncontributory HEENT: Reports: None Cardiac: Reports: High Cholesterol, Other (See Below) Other Cardiac Family History: heart disease Respiratory: Reports: None GI: Reports: None : Reports: None OBGYN: Reports: Musculoskeletal: Reports: None Neurological: Reports: None Psychiatric: Reports: None Endocrine/Metabolic: Reports: Diabetes, type II Hematologic: Reports: None Immunologic: Reports: None Dermatologic: Reports: None Oncologic: Reports: None - Tobacco Use Smoking Status *Q: Current Every Day Smoker Years of Tobacco use: 5 Packs/Tins Daily: 0.5 - Caffeine Use Caffeine Use: Reports: None - Recreational Drug Use Recreational Drug Use: No - Living Situation & Occupation Living situation: Reports: Single ED ROS GENERAL - Review of Systems Review Of Systems: See Below Constitutional: Reports: No Symptoms HEENT: Reports: No Symptoms Respiratory: Reports: No Symptoms Cardiovascular: Reports: Chest Pain Endocrine: Reports: No Symptoms GI/Abdominal: Reports: Abdominal Pain, Diarrhea : Reports: No Symptoms Musculoskeletal: Reports: No Symptoms Skin: Reports: No Symptoms Neurological: Reports: No Symptoms Psychiatric: Reports: No Symptoms ED EXAM, GI/ABD - Physical Exam Exam: See Below Exam Limited By: No Limitations General Appearance: Alert, No Apparent Distress Ears: Normal External Exam, Normal Canal, Hearing Grossly Normal Nose: Normal Inspection, Normal Mucosa, No Blood Throat/Mouth: Normal Inspection, Normal Lips Head: Atraumatic, Normocephalic Neck: Normal Inspection Respiratory/Chest: No Respiratory Distress, Lungs Clear, Normal Breath Sounds, No Accessory Muscle Use Cardiovascular: Normal Peripheral Pulses, Regular Rate, Rhythm, No Edema, No Rub GI/Abdominal Exam: Soft, No Organomegaly, No Distention, Other (highperactive BS ,diffusely tender.) (Female) Exam: Normal External Exam, Normal Speculum Exam, Normal Bimanual Exam Back Exam: Normal Inspection Extremities: Normal Inspection Course - Vital Signs Text/Narrative:: labs reviewed and discussed with patient EKG-early rep Trop-Neg x2 IVF ativan 1 mg IV ASA 324 mg po x1 Morphine 4mg IV x1 CT abd pelvis-free fluid,see result Patient keeps requesting for more pain medications and ER nurse informed me that she comes to the ER a lot and request for narcotic pain meds. She has a drug seeking behavior per previous ER record although some of her pain is legit. Last Recorded V/S: Last Vital Signs Temp 36.7 C 11/13/18 18:05 Pulse 82 11/13/18 18:05 Resp 17 11/13/18 18:05 BP 124/82 11/13/18 18:05 Pulse Ox 100 11/13/18 17:00 - Orders/Labs/Meds Orders: Active Orders 24 hr Category Date Time Status EKG Documentation Completion [RC] ASDIRECTED Care 11/13/18 14:59 Active Abdomen Pelvis w Cont [CT] Stat Exams 11/13/18 15:11 Ordered EKG 12 Lead [EK] Routine Ther 11/13/18 14:59 Ordered Labs: Laboratory Tests 11/13/18 11/13/18 11/13/18 Range/Units 14:57 15:14 15:14 WBC 5.8 (4.5-12.0) X10-3/uL RBC 4.75 (3.23-5.20) x10(6)uL Hgb 13.6 (11.5-15.5) g/dL Hct 41.0 (30.0-51.3) % MCV 86.2 (80-96) fL MCH 28.6 (27.7-33.6) pg MCHC 33.1 (32.2-35.4) g/dL RDW 12.6 (11.5-15.5) % Plt Count 181 (125-369) X10(3)uL MPV 11.4 H (7.4-10.4) fL Neut % (Auto) 63.3 (46-82) % Lymph % (Auto) 29.5 (13-37) % Owen % (Auto) 6.2 (4-12) % Eos % (Auto) 1 (1.0-5.0) % Baso % (Auto) 0 (0-2) % Neut # (Auto) 3.7 (1.6-8.3) # Lymph # (Auto) 1.7 (0.6-5.0) # Owen # (Auto) 0.4 (0.0-1.3) # Eos # (Auto) 0.0 (0.0-0.8) # Baso # (Auto) 0.0 (0.0-0.2) # Sodium 136 (135-145) mmol/L Potassium 3.6 (3.5-5.3) mmol/L Chloride 100 D (100-110) mmol/L Carbon Dioxide 26 (21-32) mmol/L BUN 9 (7-18) mg/dL Creatinine 0.6 (0.55-1.02) mg/dL Est Cr Clr Drug Dosing TNP Estimated GFR (MDRD) > 60 (>60) BUN/Creatinine Ratio 15.0 (9-20) Glucose 286 H D (80-116) mg/dL Calcium 8.2 L (8.6-10.2) mg/dL Total Bilirubin 0.6 (0.1-1.3) mg/dL AST 11 D (5-25) IU/L ALT 20 D (12-36) U/L Alkaline Phosphatase 91 (56-112) IU/L Troponin I (<0.017-0.056) ng/mL Total Protein 6.8 (6.0-8.0) g/dL Albumin 3.4 L (3.5-5.2) g/dL Globulin 3.4 g/dL Albumin/Globulin Ratio 1.0 Amylase 23 L (25-115) U/L Lipase (73-393) U/L Urine Color Yellow (YELLOW) Urine Appearance Clear (CLEAR) Urine pH 5.0 (5.0-6.5) Ur Specific Soldier 1.015 (1.010-1.025) Urine Protein Negative (NEGATIVE) mg/dL Urine Glucose (UA) >1000 H (NORMAL) mg/dL Urine Ketones Negative (NEGATIVE) mg/dL Urine Occult Blood Negative (NEGATIVE) Urine Nitrite Negative (NEGATIVE) Urine Bilirubin Negative (NEGATIVE) Urine Urobilinogen Normal (NEGATIVE) mg/dL Ur Leukocyte Esterase Negative (NEGATIVE) Urine RBC 0-5 (0-5) Urine WBC 0-5 (0-5) Ur Squamous Epith Cells Few H (NS,R,O) Urine Bacteria Few H (NS) 11/13/18 11/13/18 11/13/18 Range/Units 15:14 15:14 17:15 WBC (4.5-12.0) X10-3/uL RBC (3.23-5.20) x10(6)uL Hgb (11.5-15.5) g/dL Hct (30.0-51.3) % MCV (80-96) fL MCH (27.7-33.6) pg MCHC (32.2-35.4) g/dL RDW (11.5-15.5) % Plt Count (125-369) X10(3)uL MPV (7.4-10.4) fL Neut % (Auto) (46-82) % Lymph % (Auto) (13-37) % Owen % (Auto) (4-12) % Eos % (Auto) (1.0-5.0) % Baso % (Auto) (0-2) % Neut # (Auto) (1.6-8.3) # Lymph # (Auto) (0.6-5.0) # Owen # (Auto) (0.0-1.3) # Eos # (Auto) (0.0-0.8) # Baso # (Auto) (0.0-0.2) # Sodium (135-145) mmol/L Potassium (3.5-5.3) mmol/L Chloride (100-110) mmol/L Carbon Dioxide (21-32) mmol/L BUN (7-18) mg/dL Creatinine (0.55-1.02) mg/dL Est Cr Clr Drug Dosing Estimated GFR (MDRD) (>60) BUN/Creatinine Ratio (9-20) Glucose (80-116) mg/dL Calcium (8.6-10.2) mg/dL Total Bilirubin (0.1-1.3) mg/dL AST (5-25) IU/L ALT (12-36) U/L Alkaline Phosphatase (56-112) IU/L Troponin I < 0.017 L < 0.017 L (<0.017-0.056) ng/mL Total Protein (6.0-8.0) g/dL Albumin (3.5-5.2) g/dL Globulin g/dL Albumin/Globulin Ratio Amylase (25-115) U/L Lipase 74 (73-393) U/L Urine Color (YELLOW) Urine Appearance (CLEAR) Urine pH (5.0-6.5) Ur Specific Soldier (1.010-1.025) Urine Protein (NEGATIVE) mg/dL Urine Glucose (UA) (NORMAL) mg/dL Urine Ketones (NEGATIVE) mg/dL Urine Occult Blood (NEGATIVE) Urine Nitrite (NEGATIVE) Urine Bilirubin (NEGATIVE) Urine Urobilinogen (NEGATIVE) mg/dL Ur Leukocyte Esterase (NEGATIVE) Urine RBC (0-5) Urine WBC (0-5) Ur Squamous Epith Cells (NS,R,O) Urine Bacteria (NS) Meds: Medications Discontinued Medications Generic Name Dose Route Start Last Admin Trade Name Adonisq PRN Reason Stop Dose Admin Aspirin 324 mg 11/13/18 15:00 11/13/18 15:52 Aspirin PO 11/13/18 15:01 324 mg ONETIME ONE Administration Sodium Chloride 1,000 mls @ 999 mls/hr 11/13/18 15:01 11/13/18 16:00 Normal Saline IV 11/13/18 16:01 999 mls/hr .BOLUS ONE Administration Iopamidol 100 ml 11/13/18 15:16 11/13/18 15:40 Isovue-370 (76%) IV 11/13/18 15:17 100 ml . DIRECTED ONE Administration Lorazepam 1 mg 11/13/18 15:03 11/13/18 15:52 Ativan IVPUSH 11/13/18 15:04 1 mg ONETIME ONE Administration Morphine Sulfate 5 mg 11/13/18 15:05 11/13/18 15:52 Morphine IVPUSH 11/13/18 15:06 Not Given ONETIME ONE Morphine Sulfate Confirm 11/13/18 15:45 11/13/18 16:27 Morphine Administered 11/13/18 15:46 Not Given Dose 10 mg .ROUTE .STK-MED ONE Morphine Sulfate 5 mg 11/13/18 15:50 11/13/18 15:51 Morphine IVPUSH 11/13/18 15:51 5 mg ONETIME ONE Administration Departure - Departure Time of Disposition: 17:45 Disposition: Home, Self-Care 01 Condition: Good Clinical Impression: Abdominal pain, Anxiety, Gastroenteritis, Chest pain - Discharge Information *PRESCRIPTION DRUG MONITORING PROGRAM REVIEWED*: No *COPY OF PRESCRIPTION DRUG MONITORING REPORT IN PATIENT TED: No Instructions: Viral Gastroenteritis, Adult, Sony, [id number] Referrals: Delia Lowe MUSEUM INFORMATICS SPECIALIST [Primary Care Provider] - Forms: ED Department Discharge Additional Instructions: please read discharge instructions on ovulation pain take ibuprofen 800 mg with tylenol 1000 mg every 8 hours as needed for pain follow if your symptoms persist - My Orders Last 24 Hours: My Active Orders 11/13/18 14:59 EKG Documentation Completion [RC] ASDIRECTED EKG 12 Lead [EK] Routine 11/13/18 15:11 Abdomen Pelvis w Cont [CT] Stat - Assessment/Plan Last 24 Hours: My Active Orders 11/13/18 14:59 EKG Documentation Completion [RC] ASDIRECTED EKG 12 Lead [EK] Routine 11/13/18 15:11 Abdomen Pelvis w Cont [CT] Stat
[2018-11-13 19:01] VITALS: BP 124/82; PULSE 82
--- NOTE | 2018-11-16 09:48 | CT ---
INDICATION: Diffuse abdominal pain times two days. CT ABDOMEN AND PELVIS WITH IV CONTRAST: Spiral 3.75 mm axial sections were obtained through the abdomen and pelvis with 100 mL Isovue 370 at 2.5 mL/second , with sagittal and coronal reconstructions, 11/13/18, and compared with . Total exam DLP = 936.15 mGy-cm. The heart appeared normal in size. No pericardial effusion was seen. The gallbladder is again absent, compatible with history of its removal. No focal liver abnormality was seen. Low density area in medial right lobe again noted, unchanged. The spleen, adrenals, kidneys, and pancreas appear to be normal. The common bile duct was normal in caliber. No retroperitoneal mass was identified. 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 The urinary bladder was unremarkable. The appendix appeared normal, visualized on axial image #86 through #98 inferior to the cecum. There are again noted multiple fluid-filled loops of bowel in the jejunum area, extending into the ileum - slightly increased in number compared with the previous study with only minimal dilatation. Etiology is indeterminate but could be related ot a process such as Crohns disease or possibly gastroenteritis. No free air or definite mechanically obstructive bowel obstruction was identified. There is noted free fluid in the posterior lower pelvis - cul-de-sac area and extending to the ovaries, especially on the right. No significant appearing ovarian mass is seen, and the fluid could be on the basis of a recently involuted follicular cyst - correlate clinically. No additional organomegaly, mass lesions, or free fluid collections were identified in the abdomen or pelvis. IMPRESSION: 1. Free fluid in the posterior cul-de-sac area, moderate amount, may represent rupture of a physiologic ovarian cyst. 2. Fluid-filled loops of bowel may be on the basis of early gastroenteritis or possibly a process such as Crohns disease but should be correlated clinically. 3. Post cholecystectomy. 4. Degenerative changes and disk disease again noted at L4-5. 5. 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 Report was called to Dr. Johns on 11/13/18 at 1552 hours. [facility]
== END 2018-11-13 18:10 | disposition home or self-care (01) ==
LOC: FB.ED 14:33
DX: K52.9 Noninfective gastroenteritis and colitis, unspecified (principal); F41.9 Anxiety disorder, unspecified; R07.9 Chest pain, unspecified; E11.40 Type 2 diabetes mellitus with diabetic neuropathy, unspecified; F17.210 Nicotine dependence, cigarettes, uncomplicated; F32.9 Major depressive disorder, single episode, unspecified; Z79.4 Long term (current) use of insulin; Z88.5 Allergy status to narcotic agent; Z88.6 Allergy status to analgesic agent
CPT/HCPCS: 36415; 74177; 80053; 81001; 82150; 83690; 84484; 85025; 93005; 96361; 96374; 96375; 99284; A9270; J2060; J2270; J7030; Q9967

== ENCOUNTER 2018-12-24 14:33 | Emergency (ER) | payer MEDICAID ==
--- NOTE | 2018-12-24 15:52 | EDM.PDOC ---
ED HPI GENERAL MEDICAL PROBLEM - General Chief Complaint: Abdominal Pain Stated Complaint: chest pain Time Seen by Provider: 12/24/18 15:10 Source of Information: Reports: Patient History Limitations: Reports: No Limitations - History of Present Illness INITIAL COMMENTS - FREE TEXT/NARRATIVE: c/o CP x 4d and LUQ abd pain x 2d CP left sided, sharp, no radiation, continuous, inc'd with lying, did wake her at 5a today and was worse LUQ pain x 4d, some in RUQ as well, on radiation, no change with food or BM, has loose stools pt states she has a h/o anxiety and PTSD x 10y, in counseling, on meds, thinks it is the cause of her pain states she has uncontrolled DM, on Lantus 55u qhs and Novolog sliding scale, last recorded A1C 15.3 4y ago 2m ago after hanging himself, he came to ED, flown to [place], 11d later has 4 children, ages 9,7,4 and 2, oldest 2 in school, youngest two with an uncle 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, not working since of [place] reviewed, in last month pt has filled 120 tabs pregabalin and 60 tabs of clonoazepam 1 mg labs 4m ago were neg: CRP, amylase, lipase, d-dimer, VBG labs neg 6w ago: CBC, trop labs neg 2y ago: BNP pt with 31 problems on problem list, 80% are pain c/o states she has left upper molar pain, waiting for a root canal L chest, mid & L abdomen Pain Score (Numeric/FACES): 8 - Related Data Allergies Allergy/AdvReac Type Severity Reaction Status Date / Time codeine Allergy Nausea Verified 12/24/18 14:48 ketorolac tromethamine Allergy Nausea Verified 12/24/18 14:48 [From Toradol] tramadol Allergy Tachycardia Verified 12/24/18 14:48 Home Meds: Home Meds ClonazePAM [KlonoPIN] 1 mg PO BID PRN 12/06/17 [History] Pregabalin [Lyrica] 100 mg PO QID 08/18/18 [History] Insulin Glarg,Human.Rec.Analog [Lantus Solostar] 55 units SUBCUT BEDTIME [History] Insulin Lispro [HumaLOG] 8 - 12 unit SQ TID 12/24/18 [History] atorvaSTATin Calcium [Atorvastatin Calcium] 20 mg BEDTIME 12/24/18 [History] Past Medical History HEENT History: Reports: Other (See Below) Other HEENT History: toothache, dental pain, dental caries, dental infection, abscess Cardiovascular History: Reports: Arrhythmia, High Cholesterol, Other (See Below) Other Cardiovascular History: hx of chestpain, palpitations Respiratory History: Reports: Other (See Below) Other Respiratory History: pneumonia Gastrointestinal History: Reports: Gastritis, Other (See Below) Other Gastrointestinal History: Gastroenteritis. Genitourinary History: Reports: Renal Disease, UTI, Recurrent FISH WORM GROWER History: Reports: PID, Other (See Below) Other FISH WORM GROWER History: 5 c sections, infection in fallopian tube, Musculoskeletal History: Reports: Back Pain, Chronic, Fracture Other Musculoskeletal History: DDD and bulging disks, hx fx L wrist Neurological History: Reports: Concussion, Migraines, Neuropathy, Diabetic, Seizure Psychiatric History: Reports: ADD, Anxiety, Depression, Psych Hospitalization(s) , PTSD Endocrine/Metabolic History: Reports: Diabetes, Type II, Obesity/BMI 30+ Hematologic History: Reports: Blood Transfusion(s) - Infectious Disease History Infectious Disease History: Reports: Chicken Pox - Past Surgical History Head Surgeries/Procedures: Reports: None HEENT Surgical History: Reports: Oral Surgery GI Surgical History: Reports: Cholecystectomy Female Surgical History: Reports: Section, D&C, Tubal Ligation Other Female Surgeries/Procedures: CS x 5 Neurological Surgical History: Reports: None Social & Family History - Family History Family Medical History: Noncontributory HEENT: Reports: None Cardiac: Reports: High Cholesterol, Other (See Below) Other Cardiac Family History: heart disease Respiratory: Reports: None GI: Reports: None : Reports: None OBGYN: Reports: Musculoskeletal: Reports: None Neurological: Reports: None Psychiatric: Reports: None Endocrine/Metabolic: Reports: Diabetes, type II Hematologic: Reports: None Immunologic: Reports: None Dermatologic: Reports: None Oncologic: Reports: None - Tobacco Use Smoking Status *Q: Former Smoker Years of Tobacco use: 2 Used Tobacco, but Quit: Yes Month/Year Tobacco Last Used: 2019 - Caffeine Use Caffeine Use: Reports: Coffee - Recreational Drug Use Recreational Drug Use: No - Living Situation & Occupation Living situation: Reports: Single ED ROS GENERAL - Review of Systems Review Of Systems: See Below Constitutional: Reports: No Symptoms HEENT: Reports: No Symptoms Respiratory: Reports: No Symptoms Cardiovascular: Reports: Chest Pain Endocrine: Reports: No Symptoms GI/Abdominal: Reports: Abdominal Pain, Diarrhea. Denies: Nausea, Vomiting : Reports: No Symptoms Musculoskeletal: Reports: No Symptoms Skin: Reports: No Symptoms Neurological: Reports: No Symptoms Psychiatric: Reports: No Symptoms Hematologic/Lymphatic: Reports: No Symptoms Immunologic: Reports: No Symptoms ED EXAM, GENERAL - Physical Exam Exam: See Below Exam Limited By: Other (anxious, nonill) General Appearance: Alert, WD/WN, No Apparent Distress Nose: Normal Inspection, Normal Mucosa, No Blood Throat/Mouth: Normal Inspection, Normal Lips, Normal Teeth, Normal Gums, Normal Oropharynx, Normal Voice, No Airway Compromise Head: Atraumatic, Normocephalic Neck: Normal Inspection, Supple, Non-Tender, Full Range of Motion Respiratory/Chest: No Respiratory Distress, Lungs Clear, Normal Breath Sounds, No Accessory Muscle Use, Chest Non-Tender, Other (mild tender on palpation ribs laterally) Cardiovascular: Regular Rate, Rhythm, No Edema, No Gallop, No JVD, No Murmur, No Rub GI/Abdominal: Normal Bowel Sounds, Soft, No Organomegaly, No Distention, No Mass , Other (mild tender across transverse colon, a little more at LUQ, some tender at LLQ, no suprapubic tender, no RLQ tender, no CVAT b/l, no BS x 4) Back Exam: Normal Inspection, Full Range of Motion, NT Extremities: Normal Inspection, Normal Range of Motion, Non-Tender, No Pedal Edema Neurological: Alert, Oriented, CN II-XII Intact, No Motor/Sensory Deficits Psychiatric: Normal Affect, Normal Mood Skin Exam: Warm, Dry, Intact, Normal Color, No Rash Lymphatic: No Adenopathy Course - Vital Signs Last Recorded V/S: Last Vital Signs Temp 36.4 C 12/24/18 14:37 Pulse 102 H 12/24/18 14:37 Resp 18 12/24/18 14:37 BP 119/82 12/24/18 14:37 Pulse Ox 100 12/24/18 14:37 - Orders/Labs/Meds Labs: Laboratory Tests 12/24/18 12/24/18 12/24/18 Range/Units 14:50 14:50 14:50 WBC 7.4 (4.5-12.0) X10-3/uL RBC 4.95 (3.23-5.20) x10(6)uL Hgb 14.2 (11.5-15.5) g/dL Hct 42.8 (30.0-51.3) % MCV 86.5 (80-96) fL MCH 28.8 (27.7-33.6) pg MCHC 33.3 (32.2-35.4) g/dL RDW 13.8 (11.5-15.5) % Plt Count 215 (125-369) X10(3)uL MPV 11.3 H (7.4-10.4) fL Neut % (Auto) 65.0 (46-82) % Lymph % (Auto) 28.3 (13-37) % [place] % (Auto) 5.4 (4-12) % Eos % (Auto) 1 (1.0-5.0) % Baso % (Auto) 0 (0-2) % Neut # (Auto) 4.8 (1.6-8.3) # Lymph # (Auto) 2.1 (0.6-5.0) # [place] # (Auto) 0.4 (0.0-1.3) # Eos # (Auto) 0.1 (0.0-0.8) # Baso # (Auto) 0.0 (0.0-0.2) # Hemoglobin A1c 11.1 H (4.5-6.2) % Troponin I < 0.017 L (<0.017-0.056) ng/mL C-Reactive Protein 0.4 L (0.5-0.9) mg/dL Lipase 129 (73-393) U/L Urine Color (YELLOW) Urine Appearance (CLEAR) Urine pH (5.0-6.5) Ur Specific [place] (1.010-1.025) Urine Protein (NEGATIVE) mg/dL Urine Glucose (UA) (NORMAL) mg/dL Urine Ketones (NEGATIVE) mg/dL Urine Occult Blood (NEGATIVE) Urine Nitrite (NEGATIVE) Urine Bilirubin (NEGATIVE) Urine Urobilinogen (NEGATIVE) mg/dL Ur Leukocyte Esterase (NEGATIVE) Urine RBC (0-5) Urine WBC (0-5) Ur Squamous Epith Cells (NS,R,O) Urine Bacteria (NS) 12/24/18 Range/Units 15:36 WBC (4.5-12.0) X10-3/uL RBC (3.23-5.20) x10(6)uL Hgb (11.5-15.5) g/dL Hct (30.0-51.3) % MCV (80-96) fL MCH (27.7-33.6) pg MCHC (32.2-35.4) g/dL RDW (11.5-15.5) % Plt Count (125-369) X10(3)uL MPV (7.4-10.4) fL Neut % (Auto) (46-82) % Lymph % (Auto) (13-37) % [place] % (Auto) (4-12) % Eos % (Auto) (1.0-5.0) % Baso % (Auto) (0-2) % Neut # (Auto) (1.6-8.3) # Lymph # (Auto) (0.6-5.0) # [place] # (Auto) (0.0-1.3) # Eos # (Auto) (0.0-0.8) # Baso # (Auto) (0.0-0.2) # Hemoglobin A1c (4.5-6.2) % Troponin I (<0.017-0.056) ng/mL C-Reactive Protein (0.5-0.9) mg/dL Lipase (73-393) U/L Urine Color Yellow (YELLOW) Urine Appearance Clear (CLEAR) Urine pH 6.0 (5.0-6.5) Ur Specific [place] 1.015 (1.010-1.025) Urine Protein Negative (NEGATIVE) mg/dL Urine Glucose (UA) >1000 H (NORMAL) mg/dL Urine Ketones 15 H (NEGATIVE) mg/dL Urine Occult Blood Negative (NEGATIVE) Urine Nitrite Negative (NEGATIVE) Urine Bilirubin Negative (NEGATIVE) Urine Urobilinogen Normal (NEGATIVE) mg/dL Ur Leukocyte Esterase Negative (NEGATIVE) Urine RBC 0-5 (0-5) Urine WBC 0-5 (0-5) Ur Squamous Epith Cells Few H (NS,R,O) Urine Bacteria Rare H (NS) Meds: Medications Discontinued Medications Generic Name Dose Route Start Last Admin Trade Name Mariana PRN Reason Stop Dose Admin Acetaminophen 1,000 mg 12/24/18 15:57 12/24/18 16:06 Tylenol Extra Strength PO 12/24/18 15:58 Not Given ONETIME ONE Ibuprofen 800 mg 12/24/18 15:58 12/24/18 16:06 Motrin PO 12/24/18 15:59 Not Given ONETIME ONE - Re-Assessments/Exams Free Text/Narrative Re-Assessment/Exam: 12/24/18 16:39 pt declined ibuprofen 800 mg PO and APAP 1000 mg, said she was already on max dose pt declined hydroxyzine 50 mg IM, which I explained was for anxiety, which she later said made her sleepy pt declined Benadryl 50 mg IM which I explained had antispasmodic and pain properties she asked what else we were going to give her for pain, I explained that multimodality approaches are used to treat pain and that pregabalin, NSAIDs, APAP and heat are recommended, as well as her anxiety meds (which she herself had identified as the proximate cause of her pain) when she again asked what we would give her for pain (she had gotten MS at her last ED visit), I explained that I could not give her controlled meds pt went into a rant that I was racist for discussing controlled meds (altho she stated that she had abused opiates in the past), she kept going on a length about how rude the nurse, student teaching coordinator and myself had been all of us in fact had been quite pleasant, the student teaching coordinator who was in the room with the nurse but never even spoken to the patient I explained to the patient that she was being rude and disrespectful and that was not acceptable behavior in the ED pt stated that she was going to "file a complaint about all 3 of you" I offered to get the DON directly so that she could make a complaint in person, she declined she stated that she had not been worked up, I asked what else she wanted done, she said that she needed a cardiac echo, I explained that her EKG and troponin were neg, that an echo was not indicated and could not be done in the ED altho additional testing could be discussed with her PCP pt walked out of the ED complaining bitterly on the phone and to me as my RN was in another room, I requested that the front tender document that she had observed the patient walk out verbal but not written d/c instructions given as pt walked out AMA Departure - Departure Time of Disposition: 16:35 Disposition: Against Medical Advice 07 Condition: Good Clinical Impression: Anxiety, Chest wall pain, Spasm of colon - Discharge Information *PRESCRIPTION DRUG MONITORING PROGRAM REVIEWED*: Yes *COPY OF PRESCRIPTION DRUG MONITORING REPORT IN PATIENT TED: Not Applicable Referrals: Delia Lowe [facility]EL [facility]FFER [Primary Care Provider] - Forms: ED Department Discharge
[2018-12-24] MEDS: Ibuprofen 800 MG Tab PO ONE ×2 (16:03→16:06)
[2018-12-24] MEDS: Acetaminophen 500 MG Tab PO ONE ×2 (16:03→16:06)
[2018-12-24 16:13] LABS: HEMOGLOBIN A1C 11.1 % (4.5-6.2)
[2018-12-24 20:14] VITALS: BP 146/81; PULSE 87
== END 2018-12-24 16:34 | disposition left against medical advice (07) ==
LOC: FB.ED 14:33
DX: K58.9 Irritable bowel syndrome, unspecified (principal); R07.89 Other chest pain; F41.9 Anxiety disorder, unspecified; E11.40 Type 2 diabetes mellitus with diabetic neuropathy, unspecified; E66.9 Obesity, unspecified; Z88.5 Allergy status to narcotic agent; Z88.6 Allergy status to analgesic agent; E78.00 Pure hypercholesterolemia, unspecified; Z79.899 Other long term (current) drug therapy; Z79.4 Long term (current) use of insulin; Z68.30 Body mass index [BMI] 30.0-30.9, adult; Z87.891 Personal history of nicotine dependence
CPT/HCPCS: 36415; 81001; 83036; 83690; 84484; 85025; 86140; 93005; 99284; A9270-GY

== ENCOUNTER 2020-08-14 20:29 | Emergency (ER) | payer MEDICAID ==
[2020-08-14 21:14] LABS: HEMOGLOBIN A1C 13.3 % (<5.7)
--- NOTE | 2020-08-14 21:38 | EDM.PDOC ---
ED HPI GENERAL MEDICAL PROBLEM - General Stated Complaint: SWOLLEN ANKLES, UNABLE TO STAND Time Seen by Provider: 08/14/20 21:36 Source of Information: Reports: Patient History Limitations: Reports: No Limitations - History of Present Illness INITIAL COMMENTS - FREE TEXT/NARRATIVE: Lamar presented with left leg weakness since this morning. She woke up unable to move it,and feeling numb. This has been associated with urinary retention. She does have back pain,chronic. No fever. Lamar has DM 2 ,that is poorly controlled. - Related Data Allergies Allergy/AdvReac Type Severity Reaction Status Date / Time codeine Allergy Nausea Verified 12/24/18 14:48 ketorolac tromethamine Allergy Nausea Verified 12/24/18 14:48 [From Toradol] tramadol Allergy Tachycardia Verified 12/24/18 14:48 Home Meds: Home Meds ClonazePAM [KlonoPIN] 1 mg PO BID PRN 12/06/17 [History] Pregabalin [Lyrica] 100 mg PO QID 08/18/18 [History] Insulin Glarg,Human.Rec.Analog [Lantus Solostar] 55 units SUBCUT BEDTIME 12/24/18 [History] Insulin Lispro [HumaLOG] 8 - 12 unit SQ TID 12/24/18 [History] atorvaSTATin Calcium [Atorvastatin Calcium] 20 mg BEDTIME 12/24/18 [History] Past Medical History HEENT History: Reports: Other (See Below) Other HEENT History: toothache, dental pain, dental caries, dental infection, abscess Cardiovascular History: Reports: Arrhythmia, High Cholesterol, Other (See Below) Other Cardiovascular History: hx of chestpain, palpitations Respiratory History: Reports: Other (See Below) Other Respiratory History: pneumonia Gastrointestinal History: Reports: Gastritis, Other (See Below) Other Gastrointestinal History: Gastroenteritis. Genitourinary History: Reports: Renal Disease, UTI, Recurrent RESIDENCE LIFE COORDINATOR History: Reports: PID, Other (See Below) Other RESIDENCE LIFE COORDINATOR History: 5 c sections, infection in fallopian tube, Musculoskeletal History: Reports: Back Pain, Chronic, Fracture Other Musculoskeletal History: DDD and bulging disks, hx fx L wrist Neurological History: Reports: Concussion, Migraines, Neuropathy, Diabetic, Seizure Psychiatric History: Reports: ADD, Anxiety, Depression, Psych Hospitalization(s), PTSD Endocrine/Metabolic History: Reports: Diabetes, Type II, Obesity/BMI 30+ Hematologic History: Reports: Blood Transfusion(s) - Infectious Disease History Infectious Disease History: Reports: Chicken Pox - Past Surgical History Head Surgeries/Procedures: Reports: None HEENT Surgical History: Reports: Oral Surgery GI Surgical History: Reports: Cholecystectomy Female Surgical History: Reports: Section, D&C, Tubal Ligation Other Female Surgeries/Procedures: CS x 5 Neurological Surgical History: Reports: None Social & Family History - Family History Family Medical History: No Pertinent Family History HEENT: Reports: None Cardiac: Reports: High Cholesterol, Other (See Below) Other Cardiac Family History: heart disease Respiratory: Reports: None GI: Reports: None : Reports: None OBGYN: Reports: Musculoskeletal: Reports: None Neurological: Reports: None Psychiatric: Reports: None Endocrine/Metabolic: Reports: Diabetes, type II Hematologic: Reports: None Immunologic: Reports: None Dermatologic: Reports: None Oncologic: Reports: None - Caffeine Use Caffeine Use: Reports: Coffee - Living Situation & Occupation Living situation: Reports: Single ED ROS GENERAL - Review of Systems Review Of Systems: See Below HEENT: Reports: No Symptoms Respiratory: Reports: No Symptoms : Reports: Incontinence Musculoskeletal: Reports: Back Pain Neurological: Reports: Numbness, Tingling, Difficulty Walking ED EXAM, NEURO - Physical Exam Exam: See Below Exam Limited By: No Limitations General Appearance: Alert, WD/WN, No Apparent Distress Respiratory/Chest: No Respiratory Distress Cardiovascular: Normal Peripheral Pulses Neurological: Alert, Normal Mood/Affect, Oriented x 3, Other (Weakness left leg). No: Normal Dorsiflexion Back Exam: Normal Inspection, Full Range of Motion Extremities: Normal Inspection, Pedal Edema Course - Orders/Labs/Meds Labs: Laboratory Tests 08/14/20 08/14/20 08/14/20 Range/Units 20:54 20:54 20:54 WBC 6.0 (3.0-10.3) x10-3/uL RBC 4.36 (3.60-5.20) x10(6)uL Hgb 12.7 (11.4-15.5) g/dL Hct 38.4 (34.2-48.2) % MCV 88.0 (76.7-100.5) fL MCH 29.2 (23.9-33.9) pg MCHC 33.2 (31.9-34.8) g/dL RDW 13.5 (12.3-16.5) % Plt Count 182 (151-488) x10(3)uL MPV 10.7 (7.1-12.4) fL Neut % (Auto) 59.7 (30.8-76.2) % Lymph % (Auto) 29.4 (18.4-52.1) % [place] % (Auto) 9.3 (4.4-15.7) % Eos % (Auto) 1.1 (0.6-8.1) % Baso % (Auto) 0.5 (0.2-1.5) % Neut # (Auto) 3.6 (1.5-6.3) x10-3/uL Lymph # (Auto) 1.8 (1.0-4.4) x10-3/uL [place] # (Auto) 0.6 (0.3-1.0) x10-3/uL Eos # (Auto) 0.1 (0.0-0.8) x10-3/uL Baso # (Auto) 0.0 (0.0-0.1) x10-3/uL Sodium 132 L (135-145) mmol/L Potassium 3.7 (3.5-5.3) mmol/L Chloride 91 L D (100-110) mmol/L Carbon Dioxide 30 (21-32) mmol/L BUN 11 (7-18) mg/dL Creatinine 0.8 (0.55-1.02) mg/dL Est Cr Clr Drug Dosing TNP Estimated GFR (MDRD) > 60 (>60) BUN/Creatinine Ratio 13.8 (9-20) Glucose 550 H* D (80-116) mg/dL Hemoglobin A1c (<5.7) % Calcium 9.2 (8.6-10.2) mg/dL NT-Pro-B Natriuret Pep 48 (<=125) pg/mL Urine Color (YELLOW) Urine Appearance (CLEAR) Urine pH (5.0-6.5) Ur Specific [place] (1.010-1.025) Urine Protein (NEGATIVE) mg/dL Urine Glucose (UA) (NORMAL) mg/dL Urine Ketones (NEGATIVE) mg/dL Urine Occult Blood (NEGATIVE) Urine Nitrite (NEGATIVE) Urine Bilirubin (NEGATIVE) Urine Urobilinogen (NEGATIVE) mg/dL Ur Leukocyte Esterase (NEGATIVE) Urine RBC (0-5) Urine WBC (0-5) Ur Squamous Epith Cells (NS,R,O) Urine Bacteria (NS) 08/14/20 08/14/20 Range/Units 20:54 21:05 WBC (3.0-10.3) x10-3/uL RBC (3.60-5.20) x10(6)uL Hgb (11.4-15.5) g/dL Hct (34.2-48.2) % MCV (76.7-100.5) fL MCH (23.9-33.9) pg MCHC (31.9-34.8) g/dL RDW (12.3-16.5) % Plt Count (151-488) x10(3)uL MPV (7.1-12.4) fL Neut % (Auto) (30.8-76.2) % Lymph % (Auto) (18.4-52.1) % [place] % (Auto) (4.4-15.7) % Eos % (Auto) (0.6-8.1) % Baso % (Auto) (0.2-1.5) % Neut # (Auto) (1.5-6.3) x10-3/uL Lymph # (Auto) (1.0-4.4) x10-3/uL [place] # (Auto) (0.3-1.0) x10-3/uL Eos # (Auto) (0.0-0.8) x10-3/uL Baso # (Auto) (0.0-0.1) x10-3/uL Sodium (135-145) mmol/L Potassium (3.5-5.3) mmol/L Chloride (100-110) mmol/L Carbon Dioxide (21-32) mmol/L BUN (7-18) mg/dL Creatinine (0.55-1.02) mg/dL Est Cr Clr Drug Dosing Estimated GFR (MDRD) (>60) BUN/Creatinine Ratio (9-20) Glucose (80-116) mg/dL Hemoglobin A1c 13.3 H (<5.7) % Calcium (8.6-10.2) mg/dL NT-Pro-B Natriuret Pep (<=125) pg/mL Urine Color Yellow (YELLOW) Urine Appearance Slightly cloudy (CLEAR) Urine pH 6.0 (5.0-6.5) Ur Specific [place] 1.015 (1.010-1.025) Urine Protein Negative (NEGATIVE) mg/dL Urine Glucose (UA) >1000 H (NORMAL) mg/dL Urine Ketones Negative (NEGATIVE) mg/dL Urine Occult Blood Negative (NEGATIVE) Urine Nitrite Positive H (NEGATIVE) Urine Bilirubin Negative (NEGATIVE) Urine Urobilinogen Normal (NEGATIVE) mg/dL Ur Leukocyte Esterase Negative (NEGATIVE) Urine RBC 0-5 (0-5) Urine WBC 0-5 (0-5) Ur Squamous Epith Cells Few H (NS,R,O) Urine Bacteria Moderate H (NS) Departure - Departure Time of Disposition: 22:23 Disposition: DC/Tfer to [facility] 02 Clinical Impression: Cauda equina compression - Discharge Information - Problem List & Annotations (1) Cauda equina compression SNOMED Code(s): 20407837059209386 Code(s): G83.4 - CAUDA EQUINA SYNDROME Status: Acute Current Visit: Yes (2) Diabetes type 2, uncontrolled SNOMED Code(s): 444947554, 492834125 Code(s): E11.65 - TYPE 2 DIABETES MELLITUS WITH HYPERGLYCEMIA Status: Acute Current Visit: No Qualifiers: Glycemic state: with hyperglycemia Qualified Code(s): E11.65 - Type 2 diabetes mellitus with hyperglycemia - Problem List Review Problem List Initiated/Reviewed/Updated: Yes - Assessment/Plan Plan: Lamar will be transferred to [facility] for further studies
[2020-08-15 05:25] VITALS: BP 151/91; PULSE 125
== END 2020-08-14 22:36 ==
LOC: FB.ED 20:29
DX: G83.4 Cauda equina syndrome (principal); E78.00 Pure hypercholesterolemia, unspecified; E11.9 Type 2 diabetes mellitus without complications; E66.9 Obesity, unspecified; Z68.30 Body mass index [BMI] 30.0-30.9, adult; Z79.4 Long term (current) use of insulin; Z79.899 Other long term (current) drug therapy; Z88.5 Allergy status to narcotic agent; Z88.6 Allergy status to analgesic agent; Z68.27 Body mass index [BMI] 27.0-27.9, adult
CPT/HCPCS: 36415; 80048; 81001; 83036; 83880; 85025; 99285